=== PATIENT | male | born 1990 | race Caucasian/White ===

== ENCOUNTER → 2016-08-19 | Day surgery (SDC) | payer OTHER ==
[2016-08-13 09:23] VITALS: BMI 43.0
[~2016-08-19] VITALS: Ht 167.6 cm; Wt 121.8 kg
[~2016-08-19] MED LIST: LIDOCAINE HCL 2% 2 ML VIAL (20MG/ML) ONE; MIDAZOLAM HCL 1 MG/ML 2ML VIAL ONE; OMEP20CA9 PO; OXYC-57 PO; PROPOFOL IV EMULSION 10 MG/ML 20 ML VIAL IV ONE; SODIUM CHLORIDE 0.9% 500ML 500 ML IV ONE; WLLSR150 PO
[2016-08-19 08:38] VITALS: Ht 167.6 cm; Wt 121.8 kg
--- NOTE | 2016-08-19 10:28 | Endo History and Physical ---
History & Physical Date of Service: Aug 19, 2016. Chief Complaint: LQ PAIN, DIVERTICULITIS Referring Physician: DR. JJ JOE History of Present Illness LLQ pain treated as diverticulitis, follow up. Past Surgical History Hx Cardiac Surgery: No Hx Internal Defibrillator: No Hx Pacemaker: No Hx Abdominal Surgery: No Hx of Implantable Prosthesis: No Hx Post-Op Nausea and Vomiting: No Hx Cancer Surgery: No Hx Thoracic Surgery: No Hx Orthopedic: No Hx Urinary Tract Surgery: No Family History None Social History Smoking Status: Current Some Day Smoker Hx Substance Use: Yes (MARIJUANA OCCASSIONALLY) Hx Alcohol Use: Yes (OCCASSIONALLY) Allergies Coded Allergies: No Known Allergies (Verified , 08/19/16) Current Medications Reported Home Medications Medications Dose Route/Sig Max Daily Dose Days Date Category No Active Prescriptions or Reported Medications Rx Vital Signs Weight (Kilograms): 121.82 Height (Feet): 5 Height (Inches): 6 Date Time Temp Pulse Resp B/P Pulse Ox O2 Delivery O2 Flow Rate FiO2 08/19/16 08:52 37.2 85 20 136/74 94 Room Air Physical Exam General Appearance: WD/WN, no apparent distress, + obese Respiratory/Chest: Auscultation: breath sounds normal, no rales/crackles Cardiovascular: Heart Auscultation: RRR, no murmurs Abdomen: Bowel Sounds: normal Inspection & Palpation: no tenderness, guarding & rebound Assessment and Plan Colonoscopy today.
--- NOTE | 2016-08-19 11:00 | Discharge Instructions ---
Endoscopy Patient Instructions Date / Procedure(s) Performed Aug 19, 2016. Colonoscopy Allergy Information Coded Allergies: No Known Allergies (Verified , 08/19/16) Discharge Date / Findings Aug 19, 2016. Normal colonoscopy Medication Instructions Restart Stopped Medication(s): Restart all medications Provider Instructions Activity Restrictions - No exercising or heavy lifting for 24 hours. - Do not drink alcohol the day of the procedure. - Do not drive a car or operate machinery until the day after the procedure. - Do not make any important decisions or sign important papers in 24 hours after the procedure. Following Day: - Return to full activity which may include returning to work/school. Diet Start your diet with liquids and light foods (jello, soup, juice, toast). Then eat your usual diet if not nauseated. Treatment For Common After Affects For mild abdominal pain, bloating, or excessive gas: - Rest - Eat lightly - Lie on right side Follow-Up Information Follow-up with DR. JJ JOE as scheduled Anesthesia Information What You Should Know You have had a procedure that required some medicine to reduce anxiety and discomfort. This treatment is called moderate sedation. After receiving the treatment, you may be sleepy, but you will be able to breathe on your own. The effects of the treatment may last for several hours. Follow these instructions along with Activity/Diet recommendations noted above: * Do NOT do anything where dizziness or clumsiness would be dangerous. * Rest quietly at home today, then you can be up and about tomorrow. * Have a responsible person stay with you the rest of today. * You may have had an I.V. today. If so, you may take the dressing off later today. Recommendations Call your doctor if: * Trouble breathing * Continuous vomiting for more than 24 hours * Temperature above 101 degrees * Severe abdominal pain or bloating * Pain not relieved by pain medicine ordered * There is increased drainage or redness from any incision * A large amount of rectal bleeding greater than 2-3 tablespoons. (If you had a polyp/s removed or have hemorrhoids, a small amount of blood - from the rectum is to be expected.) * You have any unanswered questions or concerns. IN THE EVENT OF A SERIOUS EMERGENCY, GO TO THE NEAREST EMERGENCY ROOM Your discharge instructions were prepared by provider Darrion Ortez. Patient Instructions Signature Page Boby Xiong Patient (or Guardian) Signature/Date: I have read and understand the instructions given to me by my caregivers. Caregiver/RN/Doctor Signature/Date: The above-named patient and/or guardian has received patient instructions on this date. + Original Patient Signature Page (only) stays with chart. Please make copy for patient.
--- NOTE | 2016-08-19 11:03 | GI REPORT ---
Procedure Date: 08/19/2016 10:24 AM Procedure: Colonoscopy Indications: Suspected diverticulitis, Follow-up of diverticulitis Medicines: Monitored Anesthesia Care Complications: No immediate complications. Estimated blood loss: None. Estimated Blood Loss: Estimated blood loss: none. Procedure: Pre-Anesthesia Assessment: - Prior to the procedure, a History and Physical was performed, and patient medications, allergies and sensitivities were reviewed. The patient's tolerance of previous anesthesia was reviewed. - ASA Grade Assessment: III - A patient with severe systemic disease. After I obtained informed consent, the scope was passed under direct vision. Throughout the procedure, the patient's blood pressure, pulse, and oxygen saturations were monitored continuously. The scope was introduced through the anus and advanced to the terminal ileum, with identification of the appendiceal orifice and IC valve. The colonoscopy was performed with ease. The patient tolerated the procedure well. The quality of the bowel preparation was good. The bowel preparation used was split dose MIralax. Findings: The entire examined colon appeared normal. Impression: - The entire examined colon is normal to the terminal ileum with retroflexed views of the colon and terminal ileum. - No specimens collected. Recommendation: - Resume regular diet. - Discharge patient to home (with escort). Darrion Ortez M.D. Darrion Ortez MD 08/19/2016 11:03:08 AM This report has been signed electronically. Note Initiated On: 08/19/2016 10:24 AM I attest to the content of the Intraoperative Record and orders documented therein, exceptions below
[2016-08-19 11:36] VITALS: BP 143/76; PULSE 80; O2SAT 99
== END | disposition home or self-care (01) ==
LOC: C.GI 08:25
PROVIDERS: ATTEND Internal Medicine Gastroenterology
DX: R10.32 Left lower quadrant pain (principal); K57.32 Diverticulitis of large intestine without perforation or abscess without bleeding; Z87.891 Personal history of nicotine dependence

== ENCOUNTER 2016-10-15 06:03 | Emergency (ER) | payer OTHER ==
[~2016-10-15] VITALS: Ht 167.6 cm; Wt 122.0 kg
[2016-10-15 06:06] VITALS: TEMP 37; Ht 167.6 cm; Wt 122.0 kg
[2016-10-15 06:30] LABS: BASO % 0.3 %; BASO ABS # 0.02 K/uL (0-0.2); COMPLETE YES; EOS % 4.1 %; HEMATOCRIT 42.1 % (42-52); IG% 0.3 %; LYMPH % 26.6 %; MEAN CORPUSCULAR HEMOGLOBIN 29.8 pg (25-34); MEAN CORPUSCULAR HGB CONC 34.2 g/dl (32-36); MEAN PLATELET VOLUME 11.1 fL (7.4-10.4); MONO % 5.4 %; NEUT % 63.3 %; PLATELET COUNT 238 K/uL (130-400); RED BLOOD COUNT 4.84 M/uL (4.7-6.1)
[2016-10-15 06:38] LABS: ALT/SGPT 50 U/L (12-78); AST/SGOT 24 U/L (15-37); BLOOD UREA NITROGEN 22 mg/dl (7-18); CALCIUM 8.8 mg/dl (8.5-10.1); CARBON DIOXIDE 25 mmol/L (21-32); CHLORIDE 109 mmol/L (98-107); GLUCOSE 108 mg/dl (70-99); POTASSIUM 3.7 mmol/L (3.5-5.1); SODIUM 143 mmol/L (136-145)
[2016-10-15 06:43] LABS: ALKALINE PHOSPHATASE 86 U/L (45-117); CKMB/CK RATIO 0.5 (0-3.0)
[2016-10-15] MEDS ORDERED: OMEP20CA9 PO (06:44)
[2016-10-15] MEDS ORDERED: WLLSR150 PO (06:44)
[2016-10-15] MEDS ORDERED: KETOROLAC TROMETHAMINE 30 MG/ML VIAL IV STA (06:48)
--- NOTE | 2016-10-15 06:55 | DIAGNOSTIC IMAGING REPORT ---
CHEST ONE VIEW PORTABLE CLINICAL HISTORY: CP dyspnea COMPARISON STUDY: 06/22/2015 FINDINGS: Moderate stable cardiomegaly. Slight prominence pulmonary vasculature. No focal infiltrate. IMPRESSION: Cardiomegaly. Early congestive failure. Electronically signed by: Cristi Hernández M.D. 10/15/2016 6:53 AM Dictated Date/Time: 10/15/2016 6:53 AM
[2016-10-15] MEDS ORDERED: OPTIRAY 320 IV PRN (07:00)
--- NOTE | 2016-10-15 08:09 | DIAGNOSTIC IMAGING REPORT ---
CHEST CTA for AORTIC DISSECTION CT DOSE: 2378.02 mGy.cm HISTORY: Left-sided chest pain that radiates into the back. Short of breath. TECHNIQUE: Multiaxial CT images of the chest were performed both before and after the intravenous administration of contrast to evaluate the aorta. Maximal intensity projection images were also obtained. COMPARISON STUDY: Chest 10/05/2016. FINDINGS: Noncontrast imaging shows no evidence for an intramural hematoma within the thoracic aorta. Punctate stone within the right kidney. The heart is borderline enlarged. Normal caliber thoracic aorta with no evidence for dissection. The central pulmonary arteries are patent. No pleural or pericardial effusions. There are 2 small right upper tracheal diverticula. These are considered to be normal variants. No mediastinal or hilar lymphadenopathy. Normal esophagus. No hepatic or splenic masses. The adrenal glands are normal. No fractures within the visualized osseous structures. No pneumothorax. The central airways are patent. The lungs are clear. IMPRESSION: 1. No evidence for an aortic dissection. 2. Right-sided nephrolithiasis. No hydronephrosis. 3. The heart is borderline enlarged. Follow-up echocardiogram should be considered for further evaluation. Electronically signed by: Arslan Desouza M.D. 10/15/2016 8:07 AM Dictated Date/Time: 10/15/2016 7:58 AM
[2016-10-15 10:20] VITALS: BP 131/99; PULSE 76; O2SAT 98
--- NOTE | 2016-10-15 15:32 | EMERGENCY ROOM VISIT NOTE ---
History Report prepared by Amadeo: Jay Murray Under the Supervision of: Dr. Rodriguez Carroll M.D. First contact with patient: 06:37 Chief Complaint: CHEST PAIN Stated Complaint: CHEST PAIN Nursing Triage Summary: Patient arrived to ED via ALS. Patient awoke with a sudden onset of left sided CP that radiates into the back. Pain is described as sharp, constant, worse with palpation and movement. Patient also reports assoicated SOB. Patient denies any cardiac hx. Patient was given ASA and nitro pre-hospital. History of Present Illness The patient is a 26 year old male who presents to the Emergency Room via ambulance with complaints of constant sudden onset left sided chest pain occurring around 0445 this morning. The patient states that the pain radiates into his back as well, and he is having some shortness of breath. He currently rates his discomfort as a 10/10 in severity. The patient states that he was walking home from his friend's house this morning, and he stated that he got this chest pain. The patient states that he has never had pain like this before , and he states that it is worsened with movement. He additionally states that he has had some back pain for a while, though he has not had recent chest pain. The patient denies any recent heavy lifting other than some pans at his job. The patient additionally states that he has had recent issues with his gall bladder, and he is going to have it removed soon. He denies knowing any family history due to being adopted. He additionally states that he got his flu shot this year, and he denies any recent long travels. Pt denies LOC, headache, fevers, chills, diaphoresis, visual changes, neck pain, nausea, vomiting, abdominal pain, melena, hematochezia, urinary symptoms, numbness, weakness, lymphadenopathy, rash, or other complaints. Source of History: patient Onset: 0445 Position: chest (left) Symptom Intensity: 10/10 Timing: constant, other (sudden) Modifying Factors (Worsening): movement Associated Symptoms: + SOB, + back pain, + chest pain Review of Systems See HPI for pertinent positives and negatives. A total of ten systems were reviewed and were otherwise negative. Past Medical & Surgical Medical Problems: (1) Bronchitis (2) No pertinent past medical history Family History Heart disease Social History Smoking Status: Light Tobacco Smoker Alcohol Use: none Drug Use: none Marital Status: single Housing Status: lives with family Occupation Status: employed Current/Historical Medications Scheduled Bupropion HCl (Bupropion HCl Sr), 150 MG PO QAM Omeprazole (Prilosec), 20 MG PO QAM Allergies Coded Allergies: No Known Allergies (Verified , 10/15/16) Physical Exam Vital Signs Date Time Temp Pulse Resp B/P Pulse Ox O2 Delivery O2 Flow Rate FiO2 10/15/16 10:20 76 20 131/99 98 10/15/16 08:45 80 18 150/93 97 Room Air 10/15/16 06:13 74 10/15/16 06:12 74 10/15/16 06:10 97 Room Air 10/15/16 06:06 37.0 81 20 156/93 97 Room Air Physical Exam GENERAL: Awake, alert, well-appearing, in no distress HENT: Normocephalic, atraumatic. Oropharynx unremarkable. EYES: Normal conjunctiva. Sclera non-icteric. NECK: Supple. No nuchal rigidity. FROM. No JVD. RESPIRATORY: Clear to auscultation. CARDIAC: Regular rate, normal rhythm. Extremities warm and well perfused. Pulses equal. ABDOMEN: Soft, non-distended. No tenderness to palpation. No rebound or guarding. No masses. RECTAL: Deferred. MUSCULOSKELETAL: Chest examination reveals anterior chest wall tenderness. There is mild tenderness in the left mid thoracic paraspinal muscles. The back is symmetrical on inspection without obvious abnormality. There is no CVA tenderness to palpation. No joint edema. LOWER EXTREMITIES: Calves are equal size bilaterally and non-tender. No edema. No discoloration. NEURO: Normal sensorium. No sensory or motor deficits noted. SKIN: No rash or jaundice noted. Medical Decision & Procedures ER Provider Diagnostic Interpretation: X ray results as stated below per my interpretation and radiologist interpretation. Other radiology results as stated below per my review and radiologist interpretation CHEST ONE VIEW PORTABLE CLINICAL HISTORY: CP dyspnea COMPARISON STUDY: 06/22/2015 FINDINGS: Moderate stable cardiomegaly. Slight prominence pulmonary vasculature. No focal infiltrate. IMPRESSION: Cardiomegaly. Early congestive failure. Electronically signed by: Cristi Hernández M.D. 10/15/2016 6:53 AM Dictated Date/Time: 10/15/2016 6:53 AM CHEST CTA for AORTIC DISSECTION CT DOSE: 2378.02 mGy.cm HISTORY: Left-sided chest pain that radiates into the back. Short of breath. TECHNIQUE: Multiaxial CT images of the chest were performed both before and after the intravenous administration of contrast to evaluate the aorta. Maximal intensity projection images were also obtained. COMPARISON STUDY: Chest 10/05/2016. FINDINGS: Noncontrast imaging shows no evidence for an intramural hematoma within the thoracic aorta. Punctate stone within the right kidney. The heart is borderline enlarged. Normal caliber thoracic aorta with no evidence for dissection. The central pulmonary arteries are patent. No pleural or pericardial effusions. There are 2 small right upper tracheal diverticula. These are considered to be normal variants. No mediastinal or hilar lymphadenopathy. Normal esophagus. No hepatic or splenic masses. The adrenal glands are normal. No fractures within the visualized osseous structures. No pneumothorax. The central airways are patent. The lungs are clear. IMPRESSION: 1. No evidence for an aortic dissection. 2. Right-sided nephrolithiasis. No hydronephrosis. 3. The heart is borderline enlarged. Follow-up echocardiogram should be considered for further evaluation. Electronically signed by: Arslan Desouza M.D. 10/15/2016 8:07 AM Dictated Date/Time: 10/15/2016 7:58 AM Laboratory Results 10/15/16 06:10 Red Blood Count 4.84, Mean Corpuscular Volume 87.0, Mean Corpuscular Hemoglobin 29.8, Mean Corpuscular Hemoglobin Concent 34.2, Mean Platelet Volume 11.1, Neutrophils (%) (Auto) 63.3, Lymphocytes (%) (Auto) 26.6, Monocytes (%) (Auto) 5.4, Eosinophils (%) (Auto) 4.1, Basophils (%) (Auto) 0.3, Neutrophils # (Auto) 5.01, Lymphocytes # (Auto) 2.10, Monocytes # (Auto) 0.43, Eosinophils # (Auto) 0.32, Basophils # (Auto) 0.02 10/15/16 06:10 Test 10/15/16 06:10 10/15/16 09:03 White Blood Count 7.90 K/uL (4.8-10.8) Red Blood Count 4.84 M/uL (4.7-6.1) Hemoglobin 14.4 g/dL (14.0-18.0) Hematocrit 42.1 % (42-52) Mean Corpuscular Volume 87.0 fL (80-100) Mean Corpuscular Hemoglobin 29.8 pg (25-34) Mean Corpuscular Hemoglobin Concent 34.2 g/dl (32-36) Platelet Count 238 K/uL (130-400) Mean Platelet Volume 11.1 fL (7.4-10.4) Neutrophils (%) (Auto) 63.3 % Lymphocytes (%) (Auto) 26.6 % Monocytes (%) (Auto) 5.4 % Eosinophils (%) (Auto) 4.1 % Basophils (%) (Auto) 0.3 % Neutrophils # (Auto) 5.01 K/uL (1.4-6.5) Lymphocytes # (Auto) 2.10 K/uL (1.2-3.4) Monocytes # (Auto) 0.43 K/uL (0.11-0.59) Eosinophils # (Auto) 0.32 K/uL (0-0.5) Basophils # (Auto) 0.02 K/uL (0-0.2) RDW Standard Deviation 44.4 fL (36.4-46.3) RDW Coefficient of Variation 13.9 % (11.5-14.5) Immature Granulocyte % (Auto) 0.3 % Immature Granulocyte # (Auto) 0.02 K/uL (0.00-0.02) D-Dimer < 190 ug/L FEU (0-500) Anion Gap 9.0 mmol/L (3-11) Est Creatinine Clear Calc Drug Dose 137.8 ml/min Estimated GFR () 119.9 Estimated GFR (Non- 103.4 BUN/Creatinine Ratio 22.0 (10-20) Calcium Level 8.8 mg/dl (8.5-10.1) Total Bilirubin 0.4 mg/dl (0.2-1) Direct Bilirubin < 0.1 mg/dl (0-0.2) Aspartate Amino Transf (AST/SGOT) 24 U/L (15-37) Alanine Aminotransferase (ALT/SGPT) 50 U/L (12-78) Alkaline Phosphatase 86 U/L (45-117) Total Creatine Kinase 465 U/L (39-308) Creatine Kinase MB 2.2 ng/ml (0.5-3.6) Creatine Kinase MB Ratio 0.5 (0-3.0) Pro-B-Type Natriuretic Peptide < 5 pg/ml (0-450) Total Protein 7.7 gm/dl (6.4-8.2) Albumin 3.8 gm/dl (3.4-5.0) Bedside Troponin I 0.000 ng/ml (0-0.045) Laboratory results reviewed by me Medications Administered Medications (Trade) Dose Ordered Sig/Marlene Route Start Time Stop Time Status Last Admin Dose Admin Ketorolac Tromethamine (Toradol Inj) 30 mg NOW STAT IV 10/15/16 06:48 10/15/16 06:50 DC 10/15/16 06:59 30 MG ECG Indication: chest pain Rate (beats per minute): 86 Rhythm: sinus rhythm (with sinus arrhythmia) Findings: no acute ischemic change, no ectopy Change: Repeat EKG showed: Normal Sinus Rhythm at 69 bpm. No ischemia, no ectopy, no pericarditis. ED Course 0638: The patient was evaluated in room B7. A complete history and physical exam was performed. 0648: Toradol Inj 30mg IV 0847: I reevaluated the patient, and he was feeling better. 0957: I reevaluated the patient, and he was feeling well. Discussed results and discharge instructions: He verbalized understanding and agreement. The patient is ready for discharge. Medical Decision Triage Nursing notes reviewed. The patient's presentation and history were concerning for chest pain. Etiologies such as cardiac ischemia, aortic dissection, pulmonary embolism, pneumonia, pneumothorax, musculoskeletal, infections, gastrointestinal, as well as others were entertained. The patient was evaluated. He was tender in the left side. Record review indicates that he has had a few similar issues back in 2014. The patient was given Toradol. ECG was nonischemic 2. No pericarditis. The patient had a chest x-ray which shows mild cardiomegaly. He had unremarkable troponin 2. The patient had a negative CBC, chemistry panel, CK-MB, BNP, and d-dimer. No evidence of dissection on CT imaging. The patient has mild cardiomegaly but no evidence of failure. He has no respiratory issues. He has no lower extremity edema. The patient was feeling better on reassessment after the Toradol. He likely has chest wall pain. The patient will follow-up with his primary physician. If he worsens in any way he will come back. I gave my usual and customary discussion regarding this issue. By the evaluation outlined above other emergent etiologies such as those listed in the differential, as well as others, were deemed relatively unlikely. The patient was informed about the findings as listed above. All questions were answered and he was pleased with the treatment. Return instructions were outlined and the patient was discharged in stable condition. The patient was referred to his PCP for follow-up next week for a recheck of the current condition. The chart was completed utilizing [employer] Speech voice recognition software. Grammatical errors, random word insertions, pronoun errors, and incomplete sentences are an occasional consequence of this system due to software limitations, ambient noise, and hardware issues. Any formal questions or concerns about the content, text, or information contained within the body of this dictation should be directly addressed to the physician for clarification. [place] Drug Monitoring Program Search Results: patient reviewed within database, no issues identified Impression Primary Impression: Left sided chest pain Additional Impression: Left-sided back pain Scribe Attestation The scribe's documentation has been prepared under my direction and personally reviewed by me in its entirety. I confirm that the note above accurately reflects all work, treatment, procedures, and medical decision making performed by me. Departure Information Dispostion Home / Self-Care Referrals Rona Powell D.O. (PCP) Forms HOME CARE DOCUMENTATION FORM, IMPORTANT VISIT INFORMATION Patient Instructions [facility] Additional Instructions CHEST PAIN INSTRUCTIONS: Ibuprofen(Motrin, Advil) may be used for fever or pain. Use 600mg every six hours as needed. Take with food. Avoid using more than 2400mg in a 24 hour period. Do not use 2400mg per day for more than three consecutive days without physician direction. Prolonged inappropriate use can lead to stomach upset or ulcers. (AND/OR) Acetaminophen(Tylenol) may be used for fever or pain. Use 1000mg every six hours as needed. Avoid using more than 4000mg in a 24 hour period. Rest and drink plenty of fluids as tolerated. Continue current medications. Avoid strenuous activities and anything that worsens your pain. Resume normal activities once your symptoms resolve. Return to the ER immediately for worsening or persistent chest pain, abdominal pain, vomiting, fevers, chest pains, difficulty breathing, worsening of your condition, or as needed. Follow up with your primary physician on Tuesday for a recheck of your current condition. Problem Qualifiers
[2017-02-22] MEDS ORDERED: OXYC-57 PO (11:16)
== END 2016-10-15 10:21 | disposition home or self-care (01) ==
LOC: EDBD 06:03 → C.EDB 06:04
DX: R07.9 Chest pain, unspecified (principal); M54.9 Dorsalgia, unspecified; F17.200 Nicotine dependence, unspecified, uncomplicated; Z79.899 Other long term (current) drug therapy; Z82.49 Family history of ischemic heart disease and other diseases of the circulatory system

== ENCOUNTER → 2017-02-22 | Day surgery (SDC) | payer OTHER ==
[2017-02-21 15:54] VITALS: BMI 44.0
[~2017-02-22] VITALS: Ht 165.1 cm; Wt 122.3 kg
[~2017-02-22] MED LIST changes: +ATROPINE SULFATE 0.1 MG/ML 5ML SYR IV PRN; +BACITRACIN OINT 15 GM TUBE ONE; +BUPIVACAINE 0.5 % 5 MG/1 ML MPF 30ML VIAL ONE; +CEFAZOLIN 2000 MG/60 ML D5W IV SCH; +CEFAZOLIN 3000 MG/65 ML D5W IV SCH; +CEFAZOLIN IV 2,000 MG/60 ML D5W IV ONE; +DEXAMETHASONE SOD INJ 4 MG/ML VIAL ONE; +ESMOLOL HCL 10 MG/ML 10 ML VIAL ONE; +EpHEDrine SULFATE INJ 50 MG/ML AMP IV PRN; +FENTANYL CITRATE INJ 50 MCG/1 ML 2 ML VIAL IV PRN; +FENTANYL CITRATE INJ 50 MCG/1 ML 2 ML VIAL ONE; +FLUMAZENIL 0.1 MG/1 ML 10 ML VIAL IV PRN; +GLYCOPYRROLATE INJ 0.2 MG/ML VIAL ONE; +KETOROLAC TROMETHAMINE 30 MG/ML VIAL ONE; +LABETALOL HCL IV 5 MG/ML 20ML IV PRN; +LACTATED RINGER'S 1000ML 1,000 ML IV SCH; +LIDOCAINE HCL 1% 20 ML VIAL ONE; +MoRPHine SULFATE 2 MG/ML CARP IV PRN; +MoRPHine SULFATE 4 MG/ML 1 ML CARP\\VIAL IV PRN; +NALOXONE HCL 0.4 MG/1 ML VIAL/CARP IV PRN; +NEOSTIGMINE METHYLSULFATE 5 MG/5 ML SYR ONE; +ONDANSETRON INJ 2 MG/ML 2 ML VIAL IV PRN; +ONDANSETRON INJ 2 MG/ML 2 ML VIAL ONE; +OXYCODONE/ACETAMINOPHEN 5-325 TAB PO PRN; +PROMETHAZINE HCL INJ 12.5 MG in SODIUM CHLORIDE 0.9% 50ML 50 ML IV PRN; +ROCURONIUM BROMIDE 10 MG/ML 5 ML VIAL IV ONE; -SODIUM CHLORIDE 0.9% 500ML 500 ML IV ONE
[2017-02-22 08:34] VITALS: BP 139/78; PULSE 64; TEMP 36.8; O2SAT 94; Ht 165.1 cm; Wt 122.3 kg
--- NOTE | 2017-02-22 09:14 | History & Physical Bridge Note ---
H&P Re-Evaluation Bridge Note: I have examined the patient, reviewed the History & Physical and in the interval since the performance of the History & Physical I have noted the following changes of clinical significance: No changes noted
--- NOTE | 2017-02-22 10:59 | [facility] Post Operative Brief Note ---
Immediate Operative Summary Operative Date Feb 22, 2017. Pre-Operative Diagnosis chronic Cholecystitis Post-Operative Diagnosis same Procedure(s) Performed Laparoscopic Cholecystectomy Surgeon Dr. Major Staff Development Manager Surgeon(s) Pebbles Marin PA-C Estimated Blood Loss 10 ML Findings chronic cholecystitis Fluids (cc crystalloids) 1200ml Specimens A. gallbladder Drains none Anesthesia general Complication(s) None Disposition Recovery Room / PACU
--- NOTE | 2017-02-22 11:20 | Discharge Instructions ---
Discharge Instructions Date of Service Feb 22, 2017. Admission Reason for Admission: Chronic Cholecystitis, Cholelithiasis Discharge Discharge Diagnosis / Problem: same Discharge Goals Goal(s): Decrease discomfort, Improve function Activity Recommendations Activity Limitations: as noted below No heavy lifting over 20 pounds for 2 weeks No strenuous activity until cleared by surgeon Walking and light activity is encouraged No submerging incisions underwater for 2 weeks (no bathing, swimming, or hot tubs) No driving while you are taking narcotic pain medication or until you are pain free . Instructions / Follow-Up Instructions / Follow-Up You may shower in 3 days and then remove dressings, may wash hair and sponge bath in the meantime Take dressings off in 3 days Keep steri strips on incision for 7 days, they may fall off on their own that is okay Follow-up with Dr. Major in 2 weeks, call office at [phone] to make an appointment if you do not already have one Current Hospital Diet Patient's current hospital diet: Discharge Diet Recommended Diet: Regular Diet Procedures Procedures Performed: Laparoscopic Cholecystectomy Pending Studies Studies pending at discharge: yes List of pending studies: gallbladder pathology-will be reviewed at follow-up visit Medical Emergencies . Who to Call and When: Medical Emergencies: If at any time you feel your situation is an emergency, please call 911 immediately. . Non-Emergent Contact Non-Emergency issues call your: Primary Care Provider, Surgeon Call Non-Emergent contact if: you have a fever, temperature is above 101.5, your pain is not controlled, your pain is worsening, wound has increased drainage, wound has increased redness, wound has increased pain . "Provider Documentation" section prepared by Pebbles Marin. . VTE Core Measure Inpt VTE Proph given/why not?: SCD's [place] Drug Monitoring Program Search Results: patient reviewed within database, no issues identified
--- NOTE | 2017-02-22 11:52 | OPERATIVE REPORT ---
DATE OF OPERATION: 02/22/2017 PREOPERATIVE DIAGNOSIS: Chronic cholecystitis, cholelithiasis. POSTOPERATIVE DIAGNOSIS: Same. OPERATION: Laparoscopic cholecystectomy. SURGEON: Dr. Ivette Major. ANESTHESIA: General. CHIEF I DISPATCHER: Pebbles Marin PA-C. FINDINGS: Chronic cholecystitis. COMPLICATIONS: None. BLOOD LOSS: About 10 mL. IV FLUIDS: 1200 mL. INDICATIONS FOR THE PROCEDURE: This is a 26-year-old gentleman who presented with right upper quadrant pain. The patient was diagnosed with chronic cholecystitis with gallstones. The patient will be required to do laparoscopic cholecystectomy, possible open, possible cholangiogram. I did talk to the patient about the benefit and risk, alternate procedure. I indicated the risks may include but not limited such as bleeding, infection, injury to common bile duct, injury to bowel, incisional hernia, risk of anesthesiology, even . The patient understands. He signed informed consent and I answered all questions. DETAILS OF PROCEDURE: We brought the patient to the procedure, put the patient in the supine position. The patient received SCD on bilateral legs to prevent DVT. Also, patient received 2 grams Ancef IV for prophylactic antibiotic. The patient received general anesthesia without difficulty. The abdomen was prepped and draped in routine sterile fashion. After a timeout, I injected local anesthesia by using 1% lidocaine mixed with 0.5% Marcaine just above the umbilical. Then I made about a 1.5 cm incision just above umbilical, opened fascia and opened peritoneum under direct vision. I put a María trocar in, connected to CO2 to create pneumoperitoneum. Flow rate is 6 liter per minute. Pressure not more than 14 mmHg. Once we get a nice pneumoperitoneum, we put a 10 mm camera in, looked around the abdomen shows no more findings on the stomach, small bowel, large bowel and the liver; however, there was some omentum covering the gallbladder showing chronic cholecystitis. Then, we put another 3.5 mm trocar on the right upper quadrant. Once all trocars in I put grasper in to hold the base of the gallbladder, put direction to the diaphragm and put another grasper in to hold the pouch over the gallbladder, put latter to expose the triangle of Calot. The cystic duct was identified and mobilized. Then I put two 5 mm metal clips on the proximal cystic duct, 1 on the distal cystic duct, then I used scissor transection the cystic duct. The cystic artery was identified and mobilized. Then I put two 5 mm metal clips on the cystic artery, 1 on the distal cystic artery. Then, I used scissor transection the cystic artery. Then I used Bovie to take down gallbladder without difficulty, rechecked no active bleeding, no bile leak and then we removed the gallbladder through the catch bag, then we reinserted María trocar in, connected to CO2 to create pneumoperitoneum. Again looked around the abdomen, no bile leak and no active bleeding from the liver bed. Then we removed all trocars under direct vision. No active bleeding from trocar sites. Then, the pneumoperitoneum was released. Then I closed the umbilical incision, fascial layer by using #1 Vicryl [id number] x2, closed the subcutaneous layer by using 2-0 Vicryl, closed skin by using 4-0 Vicryl continuous running. Then we closed another 3.5 mm trocar site skin only by using 4-0 Vicryl. Then we put the dressing on. All the instrument, needle and sponge count correct x2 at the end of the case. The patient tolerated the procedure well. After the procedure, I did talk to the patient and patient's family member about the OR finding and procedure we did, they understand. The specimen was sent to pathology. I attest to the content of the Intraoperative Record and any orders documented therein. Any exceptions are noted below. ROGE
[2017-02-22 12:00] VITALS: BP 121/72; PULSE 65; TEMP 36.7; O2SAT 93
--- NOTE | 2017-02-22 12:02 | Anesthesiology Progress Note ---
Anesthesia Post Op Note Date & Time Feb 22, 2017 at 12:02 Vital Signs Pain Intensity: 3 Vital Signs Past 12 Hours Date Time Temp Pulse Resp B/P (MAP) Pulse Ox O2 Delivery O2 Flow Rate FiO2 02/22/17 11:51 36.5 02/22/17 11:47 70 17 94 02/22/17 11:47 69 17 02/22/17 11:45 134/82 02/22/17 11:42 75 19 02/22/17 11:42 75 19 95 02/22/17 11:41 142/83 02/22/17 11:37 76 18 93 02/22/17 11:37 78 18 02/22/17 11:36 122/73 02/22/17 11:34 Room Air 02/22/17 11:32 58 16 96 02/22/17 11:32 59 16 02/22/17 11:30 154/84 02/22/17 11:27 65 19 100 02/22/17 11:27 66 19 02/22/17 11:26 151/85 02/22/17 11:22 67 17 02/22/17 11:22 66 17 100 02/22/17 11:20 147/86 02/22/17 11:19 132/84 02/22/17 11:12 36.3 67 16 123/84 100 Mask 10 02/22/17 08:34 36.8 64 18 139/78 (98) 94 Room Air Notes Mental Status: alert / awake / arousable, participated in evaluation Pt Amnestic to Procedure: Yes Nausea / Vomiting: adequately controlled Pain: adequately controlled Airway Patency, RR, SpO2: stable & adequate BP & HR: stable & adequate Hydration State: stable & adequate Anesthetic Complications: no major complications apparent
[2017-02-22 12:29] VITALS: BP 141/78; PULSE 80; O2SAT 94
[2017-02-22 13:00] VITALS: BP 136/78; PULSE 85; TEMP 37; O2SAT 95
[2017-02-22 14:00] VITALS: BP 153/83; PULSE 92; TEMP 37; O2SAT 100
== END | disposition home or self-care (01) ==
LOC: C.ACU 08:13
PROVIDERS: ATTEND Surgery
DX: K80.10 Calculus of gallbladder with chronic cholecystitis without obstruction (principal); F31.30 Bipolar disorder, current episode depressed, mild or moderate severity, unspecified; Z87.891 Personal history of nicotine dependence

== ENCOUNTER 2023-08-02 05:48 | Inpatient (IN) ==
[2023-08-02 06:32] LABS: Basophils # (auto) 0.05 K/uL (0.00-0.20); Basophils % (auto) 0.5 %; Eosinophils # (auto) 0.26 K/uL (0.00-0.50); Eosinophils % (auto) 2.4 %; Hematocrit (blood only) 40.3 % (42.0-52.0); Hemoglobin 13.3 g/dl (14.0-18.0); Immature Granulocytes # (auto) 0.06 K/uL (0.01-0.20); Immature Granulocytes % (auto) 0.6 %; Lymphocytes # (auto) 1.52 K/uL (1.20-3.40); Mean Corpuscular Volume 87.8 fL (80.0-100.0); Monocytes # (auto) 0.56 K/uL (0.11-0.59); Monocytes % (auto) 5.1 %; Neutrophils # (auto) 8.44 K/uL (1.40-6.50); Neutrophils % (auto) 77.4 %; Platelet Count 226 K/uL (130-400); RDW Coefficient of Variation 13.7 % (11.5-14.5); RDW Standard Deviation 43.8 fL (36.4-46.3); Red Blood Count 4.59 M/uL (4.70-6.10); White Blood Count 10.89 K/ul (4.8-10.8)
[2023-08-02 06:35] LABS: Albumin Globulin Ratio 1.5 (0.9-2); Albumin Level 4.3 gm/dl (3.4-5.0); BUN Creatinine Ratio 22.6 (10-20); Bilirubin,Total 0.5 mg/dl (0.2-1.0); Calcium 9.8 mg/dl (8.6-10.3); Creatinine Clr Calc Pharmacy 138.3 ml/min; Est GFR (African American) 106.4 ml/min; Est GFR (Non-African American) 91.8 ml/min; Globulin 2.9 gm/dl (2.5-4.0); Potassium 3.9 mmol/L (3.5-5.1); Total Protein 7.2 gm/dl (6.0-8.3)
[2023-08-02] MEDS ORDERED: KETOROLAC TROMETHAMINE 15 MG/ML VIAL IV ONE (06:35)
--- NOTE | 2023-08-02 06:35 | Emergency Department Note ---
Impression & Plan Renal colic, UTI (urinary tract infection), Vomiting ED Provider Note NAME: JULIO C SHARP AGE: 33 SEX: M : 1990 ARRIVES VIA: Ambulance INFORMANT: Patient ED PROVIDER(S): Mik Vazquez DO CHIEF COMPLAINT: Right flank pain HPI: Patient is a 33-year-old male with a past medical history of asthma and kidney stones and presents the ER for right lower quadrant abdominal pain associated with nausea and vomiting which started around 3 AM this morning. He has a history of kidney stones and notes that this feels different. Pain does slightly radiate to the back. Denies any headache or change in vision. No chest pain or shortness of breath. He denies any dysuria, urgency or frequency. No other exacerbating or remitting factors. He denies any previous abdominal surgeries but upon review of his chart he does have a history of cholecystectomy. ADDITIONAL HISTORY OBTAINED: Per HPI Chronic Medical/Social Conditions Affecting Care: Per HPI PAST MEDICAL HISTORY:See Below PAST SURGICAL HISTORY:See Below FAMILY HISTORY:See Below SOCIAL HISTORY:See Below HOME MEDICATIONS:See Below ALLERGIES:See Below VITALS:See Below PHYSICAL EXAMINATION: GENERAL: Sitting up in bed, alert, well appearing, obese, no acute distress, sleeping EYE EXAM: normal conjunctiva. PERRL and EOM's grossly intact. OROPHARYNX: mucous membranes are moist NECK: supple, no nuchal rigidity, no adenopathy, non-tender LUNGS: Clear to auscultation. Normal chest wall mechanics HEART: no murmurs, S1 normal and S2 normal ABDOMEN: abdomen soft, minimal tenderness in the right mid abdomen, normo-active bowel sounds, no masses, no rebound or guarding. BACK: Back is symmetrical on inspection and there is no deformity, no midline tenderness, no CVA tenderness. UPPER EXTREMITIES: upper extremities are grossly normal. LOWER EXTREMITIES: No pitting edema. NEURO EXAM: Normal sensorium, cranial nerves II-XII grossly intact, normal speech, no gross weakness of arms, no gross weakness of legs. MEDICAL DECISION MAKING: Patient is a 33-year-old male with a past medical history of kidney stones, bronchitis, asthma and a previous history of cholecystectomy who presents ER for right mid abdominal pain rating to the back associated with nausea vomiting. IV was established blood work was obtained. Labs show faint leukocytosis of 10.9. No significant anemia. BMP with slightly elevated glucose at 173. LFTs bilirubin was unremarkable. Lipase was normal. Patient had right mid abdominal pain radiating to the back. Does appear to be consistent with his previous stones but slightly different and consequently CT stone study was ordered. He was given IV fluids and Toradol as well as Zofran. Of note EKG was done prior to my evaluation by nursing staff and consequently I did order it but he had no chest pain or shortness of breath. Nothing to be consistent with ACS. UA was consistent with UTI as it had +4 bacteria whites and leukocytes. Patient was given IV Rocephin. CT abdomen pelvis confirms renal colic with hydronephrosis. In the setting of a stone in the ureter with UTI did discuss case with the hospitalist for further evaluation management treatment. Patient was given again IV fluids, IV narcotics and IV antibiotics. Updated urology as well. Consults/Care Managements Discussions: Per [facility] Triage Nursing notes reviewed. Limited review of prior medical records performed Vital Signs: reviewed and remarkable for HTN Differential diagnosis: Differential diagnoses includes but is not limited to gastritis, peptic ulcer disease, GERD, gallbladder disease, pancreatitis, small bowel obstruction, appendicitis, diverticulitis, hernia, urinary tract infection, torsion, perforation, trauma, infectious. ER treatment provided: See below Diagnostics interpreted by me include EKG and cardiac monitoring as listed below: -Cardiac Monitoring: An order was placed for continuous cardiac monitoring. The monitor shows a rate of 80 with sinus rhythm. -ECG: Sinus rhythm rate 73 Normal axis No PVCs QTc 434 -Laboratory studies:Interpreted by me as stated above in MDM and shown below. Imaging studies: Xrays: As interpreted by me:none CTs show: CT abdomen pelvis per my preliminary interpretation showed no obvious bowel obstruction CT of the pelvis per radiology showed renal colic with hydronephrosis Procedures:none Critical Care: None Past Med/Surg History Medical History History of kidney stones Abdominal pain REASON FOR EGD Bipolar disorder Attention deficit disorder (ADD) Anxiety and depression Hyperlipidemia no medications Sleep apnea CPAP DEVICE Surgical History History of colonoscopy Neligh teeth removed History of cholecystectomy Family History Other No significant family history Social History Smoking Status: Current every day smoker Cigarettes Per Day: LAST SMOKED CIGAR 3 MONTHS AGO; Second Hand Exposure: No; Do You Dip or Chew Tobacco: No; Hx Alcohol Use: No Hx Substance Use: No (ONLY USES MEDICAL MARIJUANA) Preferred Language: Citizen Of [place] Communication Ability: Effective Dial Painter Required: No Beliefs That Will Affect Care: None Current Living Situation: Alone Feels Safe at Home: Yes Assistive Devices: CPAP and Glasses Allergies Allergies Allergy/AdvReac Type Severity Reaction Status Date / Time No Known Drug Allergies Allergy Unknown Verified 10/16/20 13:12 POLLEN Allergy SNEEZE, Uncoded 10/16/20 13:12 WATERY EYES Home Meds Home Medications Medication Instructions Recorded Confirmed Medical Marijauna 1 dose inhalation UD PRN Anxiety 09/12/19 08/02/23 albuterol sulfate 90 mcg/actuation 2 puff inhalation Q4 PRN Cough 10/08/20 08/02/23 aerosol inhaler lamotrigine 25 mg tablet (Lamictal) 50 mg PO QAM 08/02/23 08/02/23 sertraline 50 mg tablet (Zoloft) 50 mg PO QAM 08/02/23 08/02/23 ziprasidone HCl 40 mg capsule 40 mg PO HS 08/02/23 08/02/23 (Geodon) Results & Data (ED) Vital Signs Vital Signs - 24 hr 08/02/23 05:54 08/02/23 06:00 08/02/23 06:03 Temperature 36.7 C Temperature Source Oral Pulse Rate 82 88 75 Pulse Rate from SpO2 Sensor Pulse Rhythm Regular Pulse Strength Normal Respiratory Rate 18 13 Respiratory Effort / Characteristics Non-Labored Spontaneous Respiratory Depth Normal Respiratory Pattern Regular Blood Pressure 156/86 H 156/86 H Blood Pressure Mean 109 109 Blood Pressure Position Sitting Pulse Oximetry 97 Oxygen Delivery Method Room Air Sepsis Recent Fever Within 48 Hours No Sepsis New/Unexplained Change in Mental Status N/A Sepsis Action Taken by Nursing No Action Required 08/02/23 06:08 08/02/23 06:34 08/02/23 06:44 Temperature Temperature Source Pulse Rate 78 84 75 Pulse Rate from SpO2 Sensor 83 73 Pulse Rhythm Regular Pulse Strength Respiratory Rate 20 20 20 Respiratory Effort / Characteristics Respiratory Depth Respiratory Pattern Blood Pressure Blood Pressure Mean Blood Pressure Position Pulse Oximetry 97 93 99 Oxygen Delivery Method Room Air Sepsis Recent Fever Within 48 Hours Sepsis New/Unexplained Change in Mental Status Sepsis Action Taken by Nursing 08/02/23 06:44 08/02/23 07:00 08/02/23 07:00 Temperature Temperature Source Pulse Rate 72 Pulse Rate from SpO2 Sensor 77 Pulse Rhythm Pulse Strength Respiratory Rate 21 Respiratory Effort / Characteristics Respiratory Depth Respiratory Pattern Blood Pressure 164/122 H 179/100 H Blood Pressure Mean 133 116 Blood Pressure Position Pulse Oximetry 92 Oxygen Delivery Method Sepsis Recent Fever Within 48 Hours Sepsis New/Unexplained Change in Mental Status Sepsis Action Taken by Nursing 08/02/23 07:13 08/02/23 07:30 08/02/23 07:30 Temperature Temperature Source Pulse Rate 96 H 79 Pulse Rate from SpO2 Sensor 80 Pulse Rhythm Pulse Strength Respiratory Rate 20 20 Respiratory Effort / Characteristics Respiratory Depth Respiratory Pattern Blood Pressure 179/100 H 140/82 Blood Pressure Mean 126 103 Blood Pressure Position Pulse Oximetry 92 94 Oxygen Delivery Method Room Air Sepsis Recent Fever Within 48 Hours Sepsis New/Unexplained Change in Mental Status Sepsis Action Taken by Nursing 08/02/23 08:00 08/02/23 08:00 08/02/23 08:07 Temperature Temperature Source Pulse Rate 75 79 Pulse Rate from SpO2 Sensor 75 Pulse Rhythm Pulse Strength Respiratory Rate 22 20 Respiratory Effort / Characteristics Respiratory Depth Respiratory Pattern Blood Pressure 156/84 H 156/84 H Blood Pressure Mean 100 108 Blood Pressure Position Pulse Oximetry 96 95 Oxygen Delivery Method Room Air Sepsis Recent Fever Within 48 Hours Sepsis New/Unexplained Change in Mental Status Sepsis Action Taken by Nursing 08/02/23 08:30 08/02/23 08:30 08/02/23 09:00 Temperature Temperature Source Pulse Rate 91 H 80 Pulse Rate from SpO2 Sensor Pulse Rhythm Pulse Strength Respiratory Rate 21 24 12 Respiratory Effort / Characteristics Respiratory Depth Respiratory Pattern Blood Pressure 153/94 H Blood Pressure Mean 117 Blood Pressure Position Pulse Oximetry Oxygen Delivery Method Sepsis Recent Fever Within 48 Hours Sepsis New/Unexplained Change in Mental Status Sepsis Action Taken by Nursing 08/02/23 09:00 Temperature Temperature Source Pulse Rate Pulse Rate from SpO2 Sensor Pulse Rhythm Pulse Strength Respiratory Rate Respiratory Effort / Characteristics Respiratory Depth Respiratory Pattern Blood Pressure 136/87 Blood Pressure Mean 95 Blood Pressure Position Pulse Oximetry Oxygen Delivery Method Sepsis Recent Fever Within 48 Hours Sepsis New/Unexplained Change in Mental Status Sepsis Action Taken by Nursing Laboratory Data 08/02/23 05:58 08/02/23 05:58 Lab Results 08/02/23 08/02/23 Range/Units 05:58 07:25 WBC 10.89 H (4.8-10.8) K/ul RBC 4.59 L (4.70-6.10) M/uL Hgb 13.3 L (14.0-18.0) g/dl Hct 40.3 L (42.0-52.0) % MCV 87.8 (80.0-100.0) fL MCH 29.0 (25.0-34.0) pg MCHC 33.0 (32.0-36.0) g/dL RDW Std Deviation 43.8 (36.4-46.3) fL RDW Coeff of Osmin 13.7 (11.5-14.5) % Plt Count 226 (130-400) K/uL MPV 11.0 (9.4-12.4) fL Immature Gran % (Auto) 0.6 % Neut % (Auto) 77.4 % Lymph % (Auto) 14.0 % Carbon % (Auto) 5.1 % Eos % (Auto) 2.4 % Baso % (Auto) 0.5 % Neut # (Auto) 8.44 H (1.40-6.50) K/uL Lymph # (Auto) 1.52 (1.20-3.40) K/uL Carbon # (Auto) 0.56 (0.11-0.59) K/uL Eos # (Auto) 0.26 (0.00-0.50) K/uL Baso # (Auto) 0.05 (0.00-0.20) K/uL Immature Gran # (Auto) 0.06 (0.01-0.20) K/uL Sodium 140 (136-145) mmol/L Potassium 3.9 (3.5-5.1) mmol/L Chloride 106 (98-107) mmol/L Carbon Dioxide 27 (21-32) mmol/L Anion Gap 7 (3-11) BUN 24 H (6-23) mg/dl Creatinine 1.06 (0.6-1.4) mg/dl Est Cr Clr Drug Dosing 138.3 ml/min Est GFR ( Amer) 106.4 ml/min Est GFR (Non-Af Amer) 91.8 ml/min BUN/Creatinine Ratio 22.6 H (10-20) Glucose 173 H (70-99(Fasting)) mg/dl Calcium 9.8 (8.6-10.3) mg/dl Total Bilirubin 0.5 (0.2-1.0) mg/dl AST 36 (13-39) U/L ALT 53 H (7-52) U/L Alkaline Phosphatase 82 (34-104) U/L Total Protein 7.2 (6.0-8.3) gm/dl Albumin 4.3 (3.4-5.0) gm/dl Globulin 2.9 (2.5-4.0) gm/dl Albumin/Globulin Ratio 1.5 (0.9-2) Lipase 91 H (11-82) U/L Urine Color Yellow Urine Appearance Clear (Clear) Urine pH 6.0 (4.5-7.5) Ur Specific [place] 1.017 (1.000-1.030) Urine Protein Negative (Negative) Urine Glucose (UA) Negative (Negative) Urine Ketones Negative (Negative) Urine Blood 3+ H (Negative) Urine Nitrite Negative (Negative) Urine Bilirubin Negative (Negative) Urine Urobilinogen Negative (Negative) Ur Leukocyte Esterase 2+ H (Negative) Urine WBC (Auto) 10-30 H (0-5) /hpf Urine RBC (Auto) 10-30 H (0-4) /hpf U Hyaline Cast (Auto) 1-5 (0-5) /lpf U Epithel Cells (Auto) 0-5 (0-5) /lpf Urine Bacteria (Auto) 4+ H (Negative) Administered Medications Cefepime HCl 2,000 mg/ Syringe 20 mls @ 5 mls/min IV Q8H [facility]; Protocol Stop: 08/12/23 09:59 Last Admin: 08/02/23 11:18 Dose: 5 mls/min Documented By: KLEVER Lactated Ringer's (Lr) 1,000 mls @ 125 mls/hr IV .Q8H [facility] Stop: 08/02/23 18:14 Last Admin: 08/02/23 11:17 Dose: 125 mls/hr Documented By: KLEVER Lamotrigine (Lamotrigine 25 Mg Tab) 50 mg PO QAM [facility]; Protocol Stop: 09/01/23 09:59 Last Admin: 08/02/23 10:07 Dose: 50 mg Documented By: KELVIN Discontinued Medications Sodium Chloride (Nss) 1,000 mls @ 999 mls/hr IV .Q1H1M [facility] Stop: 08/02/23 08:45 Last Infusion: 08/02/23 09:42 Dose: Infused Documented By: Admin: 08/02/23 08:13 Dose: 999 mls/hr Documented By: Infusion: 08/02/23 07:43 Dose: Infused Documented By: Admin: 08/02/23 06:42 Dose: 999 mls/hr Documented By: AMY Ceftriaxone Sodium (Rocephin) 2,000 mg in 50 mls @ 100 mls/hr IV NOW STA Stop: 08/02/23 09:13 Last Infusion: 08/02/23 09:42 Dose: Infused Documented By: Admin: 08/02/23 08:59 Dose: 100 mls/hr Documented By: KELVIN Ketorolac Tromethamine (Ketorolac Tromethamine 15 Mg/Ml Vial) 15 mg IV NOW ONE Stop: 08/02/23 06:36 Last Admin: 08/02/23 06:41 Dose: 15 mg Documented By: AMY Morphine Sulfate (Morphine Sulfate 10 Mg/Ml Carp/Vial) 6 mg IV NOW STA Stop: 08/02/23 08:45 Last Admin: 08/02/23 08:59 Dose: 6 mg Documented By: KELVIN Ondansetron HCl (Ondansetron Inj 2 Mg/Ml 2 Ml Vial) 4 mg IV NOW STA Stop: 08/02/23 06:37 Last Admin: 08/02/23 06:41 Dose: 4 mg Documented By: AMY Sertraline HCl (Sertraline Hcl 50 Mg Tablet) 50 mg PO NOW ONE Stop: 08/02/23 09:42 Last Admin: 08/02/23 10:07 Dose: 50 mg Documented By: KELVIN Tamsulosin HCl (Tamsulosin Hcl 0.4 Mg Cap) 0.4 mg PO NOW ONE Stop: 08/02/23 09:15 Last Admin: 08/02/23 09:29 Dose: 0.4 mg Documented By: KELVIN Imaging Data Radiologist's Impression: Abdomen/Pelvis CT 08/02/23 06:35 CT SCAN OF THE ABDOMEN AND PELVIS WITHOUT IV CONTRAST CLINICAL HISTORY: Right flank pain. COMPARISON STUDY: Abdominal CT dated 10/08/2020 TECHNIQUE: CT scan of the abdomen and pelvis is performed from the lung bases to the proximal femora. Images are reviewed in the axial, sagittal, and coronal planes. IV contrast was not administered for this examination. A dose lowering technique was utilized adhering to the principles of ALARA. CT DOSE: 1479.25 mGy.cm FINDINGS: Lung bases: The heart is normal in size and without pericardial effusion. The lung bases are clear. There is a small hiatal hernia. Liver: The unenhanced liver is enlarged, measuring 24 cm in length. Attenuation is diffusely diminished indicating steatosis. Nodularity of the surface contour suggests early morphologic changes of cirrhosis. There is no intrahepatic biliary ductal dilatation. Gallbladder: Surgically absent noting clips in the gallbladder fossa. Spleen: Normal in size and attenuation. Pancreas: Unremarkable. Adrenal glands: Unremarkable. Kidneys: The unenhanced kidneys are normal in size. There is a 6 mm obstructing calculus in the mid right ureter seen on image #242. This is located at the level of L5 and causes mild right hydroureteronephrosis. There is associated perinephric stranding. An additional punctate nonobstructing calculus is seen in the right lower pole. A 2 mm nonobstructing calculus is noted on the left. There is no left-sided hydronephrosis. There is no evidence of contour deforming renal mass lesion. Abdominal vasculature: The abdominal aorta is normal in course and caliber. Bowel: There are scattered colonic diverticula without CT evidence of acute diverticulitis. No bowel obstruction is identified. The appendix is well- visualized and normal. Peritoneum: There is no intraperitoneal free air or abdominal ascites. There is a fat-containing umbilical hernia. Lymphadenopathy: None. Pelvic viscera: The bladder, prostate, and seminal vesicles are normal as visualized. Skeletal structures: No lytic or blastic lesions are seen. Posterior disc osteophyte complexes are noted at L4-L5 and L5-S1. There is mild sclerotic change noted in the sacroiliac joints. IMPRESSION: 1. There is a 6 mm obstructing calculus in the mid right ureter. This causes mild right hydroureteronephrosis. 2. Additional small nonobstructing renal calculi are seen bilaterally. 3. The liver is enlarged, steatotic, and shows early morphologic changes of cirrhosis. 4. Additional findings as above. ACT 112: Negative or not required by law. Electronically signed by: Gaurav Crisostomo M.D. 08/02/2023 8:05 AM Discharge Plan Visit Data Chief Complaint: Flank Pain ED Provider: Mik Vazquez Discharge Problem: Renal colic, UTI (urinary tract infection), Vomiting Discharge Instructions Interventions: ED Discharge Assessment Last Done: 08/02/23 09:57 Discharge Problem: UTI (urinary tract infection) Qualifiers: Urinary tract infection type: acute cystitis Hematuria presence: with hematuria Qualified Code(s): N30.01 - Acute cystitis with hematuria Vomiting Qualifiers: Vomiting type: unspecified Nausea presence: unspecified Qualified Code(s): R 11.10 - Vomiting, unspecified
[2023-08-02] MEDS ORDERED: ONDANSETRON INJ 2 MG/ML 2 ML VIAL IV STA (06:36)
[2023-08-02] MEDS: SODIUM CHLORIDE 0.9% 1,000 ML IV SCH ×2 (06:42→08:13)
[2023-08-02 07:41] LABS: Appearance Urine Clear (Clear); Bacteria Urine Automated 4+ (Negative); Bilirubin Urine Negative (Negative); Blood Urine 3+ (Negative); Color Urine Yellow; Epithelial Cell Urine Auto 0-5 /lpf (0-5); Glucose Urine UA Negative (Negative); Ketones Urine Negative (Negative); Leukocyte Esterase Urine 2+ (Negative); Nitrite Urine Negative (Negative); Protein Urine Negative (Negative); Specific Gravity Urine 1.017 (1.000-1.030); Urobilinogen Urine Negative (Negative)
--- NOTE | 2023-08-02 08:07 | CT Scan Report ---
CT SCAN OF THE ABDOMEN AND PELVIS WITHOUT IV CONTRAST CLINICAL HISTORY: Right flank pain. COMPARISON STUDY: Abdominal CT dated 10/08/2020 TECHNIQUE: CT scan of the abdomen and pelvis is performed from the lung bases to the proximal femora. Images are reviewed in the axial, sagittal, and coronal planes. IV contrast was not administered for this examination. A dose lowering technique was utilized adhering to the principles of ALARA. CT DOSE: 1479.25 mGy.cm FINDINGS: Lung bases: The heart is normal in size and without pericardial effusion. The lung bases are clear. T here is a small hiatal hernia. Liver: The unenhanced liver is enlarged, measuring 24 cm in length. Attenuation is diffusely diminish ed indicating steatosis. Nodularity of the surface contour suggests early morphologic changes of cirr hosis. There is no intrahepatic biliary ductal dilatation. Gallbladder: Surgically absent noting clips in the gallbladder fossa. Spleen: Normal in size and attenuation. Pancreas: Unremarkable. Adrenal glands: Unremarkable. Kidneys: The unenhanced kidneys are normal in size. There is a 6 mm obstructing calculus in the mid r ight ureter seen on image #242. This is located at the level of L5 and causes mild right hydrouretero nephrosis. There is associated perinephric stranding. An additional punctate nonobstructing calculus is seen in the right lower pole. A 2 mm nonobstructing calculus is noted on the left. There is no lef t-sided hydronephrosis. There is no evidence of contour deforming renal mass lesion. Abdominal vasculature: The abdominal aorta is normal in course and caliber. Bowel: There are scattered colonic diverticula without CT evidence of acute diverticulitis. No bowel obstruction is identified. The appendix is well-visualized and normal. Peritoneum: There is no intraperitoneal free air or abdominal ascites. There is a fat-containing umbi lical hernia. Lymphadenopathy: None. Pelvic viscera: The bladder, prostate, and seminal vesicles are normal as visualized. Skeletal structures: No lytic or blastic lesions are seen. Posterior disc osteophyte complexes are no arabella at L4-L5 and L5-S1. There is mild sclerotic change noted in the sacroiliac joints. IMPRESSION: 1. There is a 6 mm obstructing calculus in the mid right ureter. This causes mild right hydroureteron ephrosis. 2. Additional small nonobstructing renal calculi are seen bilaterally. 3. The liver is enlarged, steatotic, and shows early morphologic changes of cirrhosis. 4. Additional findings as above. ACT 112: Negative or not required by law. Electronically signed by: Gaurav Crisostomo M.D. 08/02/2023 8:05 AM
[2023-08-02] MEDS ORDERED: MoRPHine SULFATE 10 MG/ML CARP/VIAL IV STA (08:44)
[2023-08-02] MEDS ORDERED: cefTRIAXone SODIUM 2,000 MG/50 ML BAG IV STA (08:44)
[2023-08-02] MEDS ORDERED: TAMSULOSIN HCL 0.4 MG CAP PO ONE (09:14)
[2023-08-02] MEDS ORDERED: MoRPHine SULFATE 2 MG/ML CARP IV PRN (09:15)
[2023-08-02] MEDS ORDERED: POLYETHYLENE (MIRALAX) 17 GM PACK PO PRN (09:15)
--- NOTE | 2023-08-02 09:26 | History & Physical Report ---
Date of Service August 02, 2023 Assessment & Plan (1) Right ureteral stone: (2) Kidney stone: Plan: - Admit to med surg - Continue cefepime IV, was given dose of ceftriaxone in the ER, WBC 10 k, no fever, UA appears infected with esterase 2 +, Urine WBC 10-30, bacteria 4 + - Urology consult - Strain urine, strict I/Os, continue maintenance fluids - Continue pain meds, bowel regimen - CT abdomen reviewed: 1. There is a 6 mm obstructing calculus in the mid right ureter. This causes mild right hydroureteronephrosis. 2. Additional small nonobstructing renal calculi are seen bilaterally. 3. The liver is enlarged, steatotic, and shows early morphologic changes of cirrhosis. - May consider GI referral with liver findings as above, and encourage diet and exercise for weight loss (3) Bipolar disorder: (4) Anxiety and depression: (5) Schizoaffective disorder: Plan: - Continue zoloft, lamictal, geodon HS, will order morning meds now - Chronic, Stable - Encourage continuation/ follow up with psych, therapist - pt reports remote hx of hallucination verbal and auditory, none currently (6) Morbid obesity with BMI of 50.0-59.9, adult: Plan: - BMI of 56.6, diet and weight loss encouraged at bedside (7) Sleep apnea: Plan: - Cont CPAP HS (8) Anemia: Plan: - Will check iron panel - Hgb and Hct slightly low (9) DM II (diabetes mellitus, type II), controlled: Plan: - Check A1C with am labs, pt is supposed to be on metformin but has not been taking it - ISS with accuchecks achs - Keep NPO for now, once allowed diet can have DM/ HH diet (10) Hyperlipidemia: Plan: - Check lipids with am labs DVT ppx: teds, scds Lines: 2 PIV FEN/GI: NPO CODE: FULL Dispo: From home, likely to remain in the hospital x 1-2 days A total of 75 minutes were spent with greater than 50% of that time face to face with the patient, personally reviewing all current laboratories, imaging studies, past medication reconciliation, outpatient chart review, and discussion with specialists to collaborate care for the patient with attending. Please see attending documentation for corrections and/or additions. History of Present Illness Primary Care Provider: Rona Powell DO This is a 33 yo M with PMHx of bipolar type 1, schizoaffective disorder on geodon, with DM II secondary to antipsychotic medication, anxiety, KATTY on cpap, and morbid obesity with BMI of 56.6. He has hx of nephrolithiasis a few years ago. Pt notes that his pain started around 1:30 am and was lying down to go to bed, but at 4 am was awoken by sharp pain in his right lower back/abdomen. He took some pain medication, advil x 2, overnight but didn't seem to help. He denies dysuria, hematuria, fever, chills or sweats. Pain felt similar to previous kidney stone so called EMS and presented here. He is taking geodon, sertraline. He is supposed to be taking metformin but isn't taking it. He reports not being good with taking mediation in general. Pt notes his psych history makes him less likely to follow through with medications and check ups. He states his mood overall is ok currently, pt is taking lamictal, geodon and sertraline. This morning missed meds due to the above. Allergies Allergy/AdvReac Type Severity Reaction Status Date / Time No Known Drug Allergies Allergy Unknown Verified 10/16/20 13:12 POLLEN Allergy SNEEZE, Uncoded 10/16/20 13:12 WATERY EYES Home Medications Medication Instructions Recorded Confirmed Type Medical Li 1 dose inhalation UD PRN Anxiety 09/12/19 08/02/23 History albuterol sulfate 90 mcg/actuation 2 puff inhalation Q4 PRN Cough 10/08/20 08/02/23 History aerosol inhaler lamotrigine 25 mg tablet (Lamictal) 50 mg PO QAM 08/02/23 08/02/23 History sertraline 50 mg tablet (Zoloft) 50 mg PO QAM 08/02/23 08/02/23 History ziprasidone HCl 40 mg capsule 40 mg PO HS 08/02/23 08/02/23 History (Geodon) Past Med/Surg History Medical History (Updated 08/02/23 @ 10:09 by Natalya Sheikh PA-C) History of kidney stones Abdominal pain REASON FOR EGD Bipolar disorder Attention deficit disorder (ADD) Anxiety and depression Hyperlipidemia no medications Sleep apnea CPAP DEVICE Surgical History History of colonoscopy [place] teeth removed History of cholecystectomy Family History Other No significant family history Social History Smoking Status: Current every day smoker Cigarettes Per Day: LAST SMOKED CIGAR 3 MONTHS AGO; Second Hand Exposure: No; Do You Dip or Chew Tobacco: No; Hx Alcohol Use: No Hx Substance Use: No (ONLY USES MEDICAL MARIJUANA) Preferred Language: Uzbek Communication Ability: Effective Hospitality Associate Required: No Beliefs That Will Affect Care: None Current Living Situation: Alone Feels Safe at Home: Yes Assistive Devices: CPAP and Glasses Review of Systems Review of Systems: Constitutional: No fever, sweats or chills Eyes: No diplopia, no worsening or blurred vision ENT: normal hearing, no trouble swallowing Respiratory: No cough, sputum, dyspnea at rest or on exertion Cardiovascular: No chest pain, tightness or palpitations Abdomen: No pain, nausea, vomiting, diarrhea or constipation : As per HPI Musculoskeletal: No joint pain, calf pain, swelling Neurologic: No weakness, numbness/tingling, or balance problems Psychiatric: No anxiety or depression Skin: No rash or itch Physical Exam Physical Exam: Please refer to physician addendum for PE. Results & Data Results & Data Vital Signs (Past 12 Hours) Vital Signs Temp Pulse Resp BP Pulse Ox O2 Del Method 08/02/23 08:07 79 20 156/84 H 95 Room Air 08/02/23 07:13 96 H 20 179/100 H 92 Room Air 08/02/23 06:08 78 20 97 Room Air 08/02/23 06:03 75 13 156/86 H 08/02/23 06:00 36.7 C 88 18 156/86 H 97 Room Air 08/02/23 05:54 82 Laboratory Results 08/02/23 07:25 Urine Culture - Pending Urine,Clean Catch 08/02/23 08/02/23 07:25 05:58 WBC 10.89 H RBC 4.59 L Hgb 13.3 L Hct 40.3 L MCV 87.8 MCH 29.0 MCHC 33.0 RDW Std Deviation 43.8 RDW Coeff of Osmin 13.7 Plt Count 226 MPV 11.0 Immature Gran % (Auto) 0.6 Neut % (Auto) 77.4 Lymph % (Auto) 14.0 [place] % (Auto) 5.1 Eos % (Auto) 2.4 Baso % (Auto) 0.5 Neut # (Auto) 8.44 H Lymph # (Auto) 1.52 [place] # (Auto) 0.56 Eos # (Auto) 0.26 Baso # (Auto) 0.05 Immature Gran # (Auto) 0.06 Sodium 140 Potassium 3.9 Chloride 106 Carbon Dioxide 27 Anion Gap 7 BUN 24 H Creatinine 1.06 Est Cr Clr Drug Dosing 138.3 Est GFR ( Amer) 106.4 Est GFR (Non-Af Amer) 91.8 BUN/Creatinine Ratio 22.6 H Glucose 173 H Calcium 9.8 Total Bilirubin 0.5 AST 36 ALT 53 H Alkaline Phosphatase 82 Total Protein 7.2 Albumin 4.3 Globulin 2.9 Albumin/Globulin Ratio 1.5 Lipase 91 H Urine Color Yellow Urine Appearance Clear Urine pH 6.0 Ur Specific Clifford 1.017 Urine Protein Negative Urine Glucose (UA) Negative Urine Ketones Negative Urine Blood 3+ H Urine Nitrite Negative Urine Bilirubin Negative Urine Urobilinogen Negative Ur Leukocyte Esterase 2+ H Urine WBC (Auto) 10-30 H Urine RBC (Auto) 10-30 H U Hyaline Cast (Auto) 1-5 U Epithel Cells (Auto) 0-5 Urine Bacteria (Auto) 4+ H Diagnostic Findings Abdomen/Pelvis CT 08/02/23 06:35 CT SCAN OF THE ABDOMEN AND PELVIS WITHOUT IV CONTRAST CLINICAL HISTORY: Right flank pain. COMPARISON STUDY: Abdominal CT dated 10/08/2020 TECHNIQUE: CT scan of the abdomen and pelvis is performed from the lung bases to the proximal femora. Images are reviewed in the axial, sagittal, and coronal planes. IV contrast was not administered for this examination. A dose lowering technique was utilized adhering to the principles of ALARA. CT DOSE: 1479.25 mGy.cm FINDINGS: Lung bases: The heart is normal in size and without pericardial effusion. The lung bases are clear. There is a small hiatal hernia. Liver: The unenhanced liver is enlarged, measuring 24 cm in length. Attenuation is diffusely diminished indicating steatosis. Nodularity of the surface contour suggests early morphologic changes of cirrhosis. There is no intrahepatic biliary ductal dilatation. Gallbladder: Surgically absent noting clips in the gallbladder fossa. Spleen: Normal in size and attenuation. Pancreas: Unremarkable. Adrenal glands: Unremarkable. Kidneys: The unenhanced kidneys are normal in size. There is a 6 mm obstructing calculus in the mid right ureter seen on image #242. This is located at the level of L5 and causes mild right hydroureteronephrosis. There is associated perinephric stranding. An additional punctate nonobstructing calculus is seen in the right lower pole. A 2 mm nonobstructing calculus is noted on the left. There is no left-sided hydronephrosis. There is no evidence of contour deforming renal mass lesion. Abdominal vasculature: The abdominal aorta is normal in course and caliber. Bowel: There are scattered colonic diverticula without CT evidence of acute diverticulitis. No bowel obstruction is identified. The appendix is well- visualized and normal. Peritoneum: There is no intraperitoneal free air or abdominal ascites. There is a fat-containing umbilical hernia. Lymphadenopathy: None. Pelvic viscera: The bladder, prostate, and seminal vesicles are normal as visualized. Skeletal structures: No lytic or blastic lesions are seen. Posterior disc osteophyte complexes are noted at L4-L5 and L5-S1. There is mild sclerotic change noted in the sacroiliac joints. IMPRESSION: 1. There is a 6 mm obstructing calculus in the mid right ureter. This causes mild right hydroureteronephrosis. 2. Additional small nonobstructing renal calculi are seen bilaterally. 3. The liver is enlarged, steatotic, and shows early morphologic changes of cirrhosis. 4. Additional findings as above. ACT 112: Negative or not required by law. Electronically signed by: Gaurav Crisostomo M.D. 08/02/2023 8:05 AM Code Status & VTE Plan Code Status Full code VTE Prophylaxis Plan VTE Prophylaxis will be ordered: Yes Supervising Physician Co-Signing Physician Notes I have seen and discussed the case with the collaborating TERESA. I agree with the above H&P. I have reviewed and confirmed the patients medical history, the findings on physical examination, and the patients diagnosis and treatment plan with Aguilar MOORE and agree with the information documented. In short, Mr. Xiong is a 33 year old gentleman with history of diabetes mellitus, prior nephrolithiasis, schizoaffective disorder/bipolar disorder, morbid obesity who is being admitted for management of acute cystitis iso 6mm nephrolithiasis. Patient states he noted pain this am in the right flank, that awoke him abruptly from his sleep, not alleviated with advil. Labs reveal leukocytosis to 10.89, lipase 91, Alt 53, UA+blood, LE+, 4+bacteria. CT revealed 6mm obstructing stone in midright ureter with subsequent right hydroureteronephrosis, as well as enlarged steatotic liver with early changes for cirrhosis. GENERAL APPEARANCE: AxOx4, gentleman with morbidly obesity, no acute distress. HEENT: NC, AT. MMM. EOMI, clear conjunctiva, oropharynx clear. NECK: Supple without lymphadenopathy. No stiffness or restricted ROM. HEART: Normal rate and regular rhythm, normal S1/S1, no m/r/g LUNGS: CTAB, moving air well. No crackles or wheezes are heard. ABDOMEN: Soft, nontender, nondistended with good bowel sounds heard. EXTREMITIES: Without cyanosis, clubbing or edema. NEUROLOGICAL: Grossly nonfocal. Alert and oriented, moving all 4 extremities. CN not formally tested but appear grossly intact. Skin: Warm and dry without any rash. noted hyperpigmentation around neck Plan #Right Nephrolithiasis c/b mild right hydroureteronephrosis #Acute cystis -Tamsulosin 0.4 mg qam -Urology consult -Cefepime q8h until culture returns -NPO until further recommendations from Urology -IVF LR @125 #Hepatomegaly with steatosis, early morphology for cirrhosis #Lipase elevated Benign exam -LFTs in am and repeat lipase -Will need GI follow up as OP #Normocytic anemia Multiple ongoing medical conditions/nutritional concerns likely contributing likely to downtrend with fluid resuscitation; no concerns for bleeding at this time -Anemia labs in am -Trend CBC, transfuse less than 7 #Diabetes mellitus #Morbid obesity BMI 56.6 denies taking metformin at home -Lipid panel and A1C in am -Ensure counselling regarding lifestyle modifications #Schizoaffective disorder #Bipolar disorder Reports history of tactile/auditory/visual hallucinations, denies any at this moment -Continue home medications SCDS Admit med/surg Rest of plan as above
[2023-08-02] MEDS ORDERED: SERTRALINE HCL 50 MG TABLET PO ONE (09:41)
[2023-08-02] MEDS ORDERED: GLUCOSE 40% GEL 15 GM TUBE PO PRN (09:57)
[2023-08-02] MEDS ORDERED: DEXTROSE 50% 50 ML SYRINGE IV PRN (09:57)
[2023-08-02] MEDS ORDERED: ACETAMINOPHEN 325 MG TAB PO PRN (09:57)
[2023-08-02] MEDS ORDERED: GLUCOSE 10 TAB/TUBE PO PRN (09:57)
[2023-08-02] MEDS ORDERED: ALBUTEROL HFA 8 GM INHALER INH PRN (09:57)
[2023-08-02] MEDS ORDERED: GLUCAGON FOR INJ 1 MG VIAL SQ PRN (09:57)
[2023-08-02] MEDS ORDERED: CARBOHYDRATES FOR HYPOGLYCEMIA PO PRN (09:57)
[2023-08-02] MEDS: lamoTRIgine 25 MG TAB PO SCH (10:07)
[2023-08-02] MEDS ORDERED: LACTATED RINGER'S 1,000 ML IV SCH (10:15)
[2023-08-02] MEDS: CEFEPIME 2,000 MG in SYRINGE 0 ML IV SCH ×2 (11:18→17:35)
[2023-08-02] MEDS ORDERED: INSULIN ASPART PER UNIT CHARGE SC SCH (11:30)
--- NOTE | 2023-08-02 12:02 | Urology Consultation ---
Date of Consultation August 02, 2023 Assessment & Plan (1) Right ureteral stone: 33yo/M admitted for right flank pain secondary to 6 mm mid right ureteral stone and suspicion of UTI. Patient is afebrile and hemodynamically stable Labscreatinine 1.06, WBC 10.89 UA with 2+ leukocyte esterase, 10-30 WBC, 10-30 RBC, 4+ bacteria Urine culture is pending Received ceftriaxone in the ED, transitioned to cefepimecontinue antibiotics and narrow per sensitivity data when available Discussed options for stone management including trial of passage vs surgical intervention with right ureteral stent placement inpatient or outpatient treatment options if pain is controlled He is currently comfortable and there is no emergent need for stent placement today Okay for diet today, will make NPO at midnight for reassessment We discussed outpatient management of stone if he remains stable and pain is controlled Will check KUB in the am to check stone visibility Continue with supportive care, antibiotics and medical management per primary service will follow History of Present Illness Attending Physician: Rebekah Beltre MD History of Present Illness This is a 33-year-old male with past medical history of morbid obesity, type 2 diabetes, schizoaffective disorder, sleep apnea, bipolar disorder, nephrolithiasis who presented to the emergency department today with right flank pain that started earlier this morning. Work-up with CT A/P notable for an obstructing 6 mm stone in the right mid ureter with mild hydronephrosis, additional small nonobstructing renal calculi bilaterally. On arrival, he was afebrile, hypertensive but otherwise stable vitals. Lab work showed mild leukocytosis 10.89, hemoglobin 13.3, creatinine 1.06. Urinalysis showed 3+ blood, 2+ leukocyte esterase, 10-30 WBC, 10-30 RBC, 4+ bacteria. Urine culture collected. He was admitted to the medicine service for right ureteral stone with concern of UTI. ED course included IV fluids, ceftriaxone, ketorolac, and Zofran. Patient seen and examined in the emergency department. He was asleep and resting in bed with BiPAP, arouses easily to his name. He reports sudden onset of right flank pain awakening him from sleep this am, which prompted ER presentation. He currently denies flank pain. He is voiding without difficulty, no dysuria or hematuria. No nausea or vomiting at present. No feve r or chills. Prior history of stones which he has passed spontaneously. No prior surgical intervention for stones. Allergies Allergy/AdvReac Type Severity Reaction Status Date / Time No Known Drug Allergies Allergy Unknown Verified 10/16/20 13:12 POLLEN Allergy SNEEZE, Uncoded 10/16/20 13:12 WATERY EYES Home Medications Medication Instructions Recorded Confirmed Type Medical Li 1 dose inhalation UD PRN Anxiety 09/12/19 08/02/23 History albuterol sulfate 90 mcg/actuation 2 puff inhalation Q4 PRN Cough 10/08/20 08/02/23 History aerosol inhaler lamotrigine 25 mg tablet (Lamictal) 50 mg PO QAM 08/02/23 08/02/23 History sertraline 50 mg tablet (Zoloft) 50 mg PO QAM 08/02/23 08/02/23 History ziprasidone HCl 40 mg capsule 40 mg PO HS 08/02/23 08/02/23 History (Bony) Patient History Medical History History of kidney stones Abdominal pain REASON FOR EGD Bipolar disorder Attention deficit disorder (ADD) Anxiety and depression Hyperlipidemia no medications Sleep apnea CPAP DEVICE Surgical History History of colonoscopy [place] teeth removed History of cholecystectomy Family History Other No significant family history Social History Smoking Status: Current every day smoker Cigarettes Per Day: LAST SMOKED CIGAR 3 MONTHS AGO; Second Hand Exposure: No; Do You Dip or Chew Tobacco: No; Hx Alcohol Use: No Hx Substance Use: No (ONLY USES MEDICAL MARIJUANA) Preferred Language: Kiswahili Communication Ability: Effective Medical Esthetician Required: No Beliefs That Will Affect Care: None Current Living Situation: Alone Feels Safe at Home: Yes Assistive Devices: CPAP and Glasses Review of Systems Review of Systems: All systems reviewed & are unremarkable except as noted in HPI & below Physical Exam Constitutional: well developed, well nourished and + morbidly obese; no acute distress and not ill appearing Respiratory: no respiratory distress and no labored breathing Bipap in place Cardiovascular: Rate/Rhythm: regular rate Gastrointestinal (Abdomen): Inspection/Auscultation: abdomen normal to inspection Musculoskeletal: Head/Neck/Chest: normocephalic Neurologic: moves all extremities and awake Psychiatric: Orientation: alert and oriented x 3 Results & Data Vital Signs (Past 12 Hours) Vital Signs Temp Pulse Resp BP Pulse Ox O2 Del Method FiO2 08/02/23 10:36 80 17 97 21 08/02/23 09:57 Room Air 08/02/23 09:30 97 H 16 08/02/23 09:30 149/93 H 08/02/23 09:29 86 08/02/23 09:00 136/87 08/02/23 09:00 80 12 08/02/23 08:30 91 H 24 08/02/23 08:30 21 153/94 H 08/02/23 08:07 79 20 156/84 H 95 Room Air 08/02/23 08:00 156/84 H 08/02/23 08:00 75 22 96 08/02/23 07:30 140/82 08/02/23 07:30 79 20 94 08/02/23 07:13 96 H 20 179/100 H 92 Room Air 08/02/23 07:00 179/100 H 08/02/23 07:00 72 21 92 08/02/23 06:44 164/122 H 08/02/23 06:44 75 20 99 08/02/23 06:34 84 20 93 08/02/23 06:08 78 20 97 Room Air 08/02/23 06:03 75 13 156/86 H 08/02/23 06:00 36.7 C 88 18 156/86 H 97 Room Air 08/02/23 05:54 82 PG Care Time/CCT Total # of Minutes Spent Total Time Spent with Patient: Total time spent is greater than 50% in coordination of care (as documented) at patient's floor/unit and/or counseling patient: Coding Level of Care Code 87792 IN/OBS CONSULT LVL 4,60M Diagnoses Right ureteral stone N20.1
--- NOTE | 2023-08-02 12:16 | Electrocardiogram Report ---
Test Reason : Blood Pressure : / mmHG Vent. Rate : 073 BPM Atrial Rate : 073 BPM P-R Int : 148 ms QRS Dur : 096 ms QT Int : 394 ms P-R-T Axes : 021 032 019 degrees QTc Int : 434 ms Normal sinus rhythm with sinus arrhythmia Normal ECG When compared with ECG of 09-SEP-2020 18:58, No significant change was found Confirmed by Darrion García ([id number]) on 08/02/2023 12:15:35 PM Referred By: REFERRED SELF Confirmed By:Darrion García
[2023-08-02] MEDS: INSULIN ASPART PER UNIT CHARGE SC SCH ×2 (13:54→18:49)
--- OUTSIDE RECORDS SUMMARY | 2023-08-02 14:01 | External Medical Summary | Summary of Care ---
Author Name Unknown Organization [facility] Address [address] [facility] [place] [address] Phone [phone] Care Team Providers Care Payer Specialist Name Role Phone Rona Powell DO Primary Care Provider [phone] Encounter Details Date Type Department Care Team Description 04/08/2023 Telemedicine Sleep Disorders Ctr [facility] [address] [place] [address] Gwendolyn Davis DO [address] [facility] [place] [address] Obstructive sleep apnea* Allergies Active Allergy Reactions Severity Noted Date Comments Pollen 04/13/2015 documented as of this encounter (statuses as of 04/08/2023) Medications Medication Sig Dispensed Refills Start Date End Date Status Loratadine 10 MG Oral Capsule Take 10 mg by mouth daily. 0 Active ARIPiprazole 10 MG Oral Tablet Take 10 mg by mouth daily. 0 Active Terbinafine HCl 1 % External Cream (LamISIL AT ATHLETE'S FOOT)Indications:Ti klaudia of groin Apply topically to affected area 2 times a day. Apply to groin area. 30 g 0 08/07/2020 Active ProAir HFA 108 (90 Base) MCG/ACT Inhalation Aerosol SolutionIndications :Mild intermittent reactive airway disease without complication Inhale 2 Puffs by mouth every 4 hours as needed for Cough or Wheezing. 18 g 5 09/10/2020 Active Benztropine Mesylate 1 MG Oral Tablet (Cogentin) 0 09/18/2020 Active LancetsIndications: Type 2 diabetes mellitus without complication, without long-term current use of insulin (HCC) Use as directed. 100 Each 11 07/13/2021 Active metFORMIN HCl 500 MG Oral Tablet (Glucophage)Indicat ions:Prediabetes TAKE ONE-HALF TABLET BY MOUTH TWICE A DAY WITH MORNING AND EVENING MEALS 90 Tablet 1 08/14/2021 Active Additional Information Patient not taking.Reported on 04/08/2023 Omeprazole 40 MG Oral Capsule Delayed Release (PriLOSEC)Indicatio ns:Gastroesophageal reflux disease with esophagitis without hemorrhage Take by mouth 1 Capsule in the morning. 1 hour before the first meal of the day. 90 Capsule 3 10/12/2021 Active Additional Information Patient not taking.Reported on 04/08/2023 Meloxicam 7.5 MG Oral Tablet Take by mouth 1 Tablet in the morning. 30 Tablet 0 10/30/2021 Active Additional Information Patient not taking.Reported on 04/08/2023 Misc. Devices Please consider custom molded orthotics and shoes Pes planus, equinus, foot pain bilaterally 1 Each 0 10/30/2021 Active Dicyclomine HCl 10 MG Oral Capsule (Bentyl)Indications :Gastroesophageal reflux disease without esophagitis,Abdomin al pain, epigastric TAKE 1 CAP BY MOUTH 4 TIMES A DAY NEEDED FOR ABDOMINAL PAIN 120 Capsule 1 12/23/2021 Active Additional Information Patient not taking.Reported on 04/08/2023 OneTouch Verio In Vitro Strip (Glucose Blood)Indications:T ype 2 diabetes mellitus without complication, without long-term current use of insulin (HCC) USE UP TO 2 TIMES A DAY E11.9 100 Strip 2 01/14/2022 Active lamoTRIgine 25 MG Oral Tablet (LaMICtal) Take 1 Tablet by mouth in the morning and 1 Tablet before bedtime. 0 Active Ziprasidone HCl 20 MG Oral Capsule (Geodon) Take 1 Capsule by mouth at bedtime. 0 Active Sertraline HCl 50 MG Oral Tablet (Zoloft) Take 1 Tablet by mouth at bedtime. 0 Active documented as of this encounter (statuses as of 04/08/2023) Active Problems Problem Noted Date Body mass index (BMI) of 45.0 to 49.9 in adult 11/09/2021 Overview: Per Obesity protocol - Per Obesity protocol - Per Obesity protocol - bmi= 46.93 09/20/16 KATTY (obstructive sleep apnea) 09/20/2020 Gastroesophageal reflux disease without esophagitis 07/19/2019 Depression 10/07/2016 Bipolar depression 10/18/2012 Depression (emotion) 10/18/2012 documented as of this encounter (statuses as of 04/08/2023) Resolved Problems Problem Noted Date Resolved Date Body mass index (BMI) of 40.0 to 44.9 in adult 0 10/13/2020 11/12/2021 Overview: Per Obesity protocol - Per Obesity protocol - bmi= 46.93 09/20/16 Prediabetes 09/08/2020 01/07/2021 Overview: Per Prediabetes protocol Body mass index (BMI) of 45.0 to 49.9 in adult 0 07/16/2019 10/16/2020 Overview: Per Obesity protocol - bmi= 46.93 09/20/16 Body mass index (BMI) of 40.0 to 44.9 in adult 1 07/19/2019 Overview: Per Obesity protocol #1 - bmi= 46.93 09/20/16 Paronychia of thumb 12/07/2016 01/07/2020 Tinea pedis of both feet 12/07/2016 020 Adult BMI 45.0-49.9 kg/sq m 09/20/201611/2016 Overview: bmi= 46.93 09/20/16 Moderate right ankle sprain 09/20/201612/2016 Obesity, morbid (more than 1 00 lbs over ideal weight or BMI > 40) 01/30/2013 09/20/2016 Overview: bmi= 40.19 01/30/13 Pruritus 01/30/2013 01/07/2021 Dermatitis 01/30/2013 10/07/2016 Obesity, Class II, BMI 35-39.9, isolated (see ac tual BMI) 10/18/2012 09/20/2016 documented as of this encounter (statuses as of 04/08/2023) Immunizations Name Administration Dates Next Due Pneumococcal Polysaccharide PPV23 (Pneumovax) SEASONAL INFLUENZA, PF, 6 M & Above, IM , (FLULAVAL or FLUZONE) 09/10/2020,07/19/2019 Seasonal Influenza, Quadrivalent, No Preserve, I M 09/04/2016 TDAP (age 10 and older)(Boostrix) 01/07/2020 documented as of this encounter Social History Tobacco Use Types Packs/Day Years Used Date Smoking Tobacco: Light Smoker Cigars Smokeless Tobacco: Former Quit: 12/31/2009 Comments:Occasional cigar Alcohol Use Standard Drinks/Week Comments No 0 (1 standard drink = 0.6 oz pure alcohol) Pt stopped d/t taking medication. Food Insecurity Answer Date Recorded Within the past 12 months, y ou worried that your food would run out before you got money to buy more. Never true 08/07/2020 Within the past 12 months, t he food you bought just didn't last and you didn't have money to get more. Never true 08/07/2020 Sex Assigned at Date Recorded Not on file Job Start Date Occupation Industry Not on file Not on file Not on file documented as of this encounter Progress Notes * Gwendolyn Davis, DO - 04/08/2023 10:23 AM EDT Sleep Medicine Evaluation [facility] [address] [address] Patient location: HOME. I was in a hospital or clinic location. After connecting through televideo,patient was verified with two unique identifiers. Patient (or authorized legal telephone claims representative) was then informed that this was a Telemedicine visit and being conducted confidentially over secure lines. Methods to assure confidentiality were taken. Patient acknowledged consent and understanding of pr ivacy and security of the Telemedicine visit. The patient agreed to participate. Time dedicated to today's appointment: 30 minutes HPI: Boby Xiong is a(n) 32 year old male presenting for evaluation and management of KATTY. Initially diagnosed with sleep apnea in high school, started CPAP at that time. Seen 06/21/[address] Padilla; using CPAP but sometimes the pressure felt insufficient in the setting of weight gain Split-night PSG 07/05/2019: severe KATTY, AHI 96.2, SpO2 reta 77%, time <89% 41 min, optimal CPAP setting 11 cwp with residual AHI 2.4, SpO2 reta 86%, time <89% 1.1 minute. Recommended APAP 11-18cwp. Setting was subsequently adjusted to 14-19 cwp. He recently got the recall replacement device. Setting on the new device is 12.5. Needs to have this adjusted. Currently does not have the old CPAP/supplies. Had been at 14-19 cwp. Would like adjusted starting pressure, felt like not enough when starting at 14. FFM Subjective PAP adherence: good Sleep refreshing on PAP: yes, when at the right setting; since his new device is at a lower setting, he feels more tired now. Snoring on PAP: possibly Daytime napping: sometimes, for less than an hour Drowsy driving: N/A, he does not drive Interface: FFM Mask leak: not usually Dry nose or dry mouth: sometimes Rash from mask: no Aerophagia: no RLS symptoms: no Morning headaches: no Recent weight change: might be gaining Cedar Sleepiness Scale: 4 Mod F.O.S.Q.: 32 Cedar Sleepiness Scale Question 04/07/2023 10:05 PM EDT - Filed by Patient What is the chance you will doze off in the following situation? Sitting and reading Slight chance of dozing Watching TV No chance of dozing Sitting inactive in a public place, such as a theater or meeting No chance of dozing As a passenger in a car for an hour without a break No chance of dozing Lying down to rest in the afternoon when circumstances permit High chance of dozing When sitting and talking to someone No chance of dozing When sitting quietly after lunch without alcohol No chance of dozing In a car, while stopped for a few minutes in traffic No chance of dozing Score (range: 0 - 24) 4 Functional Outcomes Of Sleep Question 04/07/2023 10:06 PM EDT - Filed by Patient Please complete the following questions. Do you have difficulty concentrating because you are sleepy or tired? Yes, a little Do you have difficulty remembering things because you are sleepy or tired? Yes, moderate Do you have difficulty operating a motor vehicle for short distances (less than 100 miles) because you become sleepy? No Do you have difficulty operating a motor vehicle for long distances (more than 100 miles) because you become sleepy? No Do you have difficulty visiting family or friends in their home because you become sleepy or tired?Yes, moderate Has your relationship with family, friends, or work colleagues been affected because you are sleepyor tired? Yes, a little Do you have difficulty watching a movie or video because you become sleepy or tired? No Do you have difficulty being as active as you want to be in the evening because you are tired or sleepy? No Do you have difficulty being as active as you want to be in the morning because you are tired or sleepy? No Has your mood been affected because you are sleepy or tired? Yes, moderate Score (range: 10 - 40) 32 Flu Vaccine Questionnaire Question 04/07/2023 10:07 PM EDT - Filed by Patient Get your flu shot at your upcoming appointment. Please select one of the options below. I would like to discuss this with my clinician CPAP Compliance: Report date: 12/01/22 % total days used: 100% % days used > 4 hours: 76.7% Average hours per day used: 5h 47m Large leak: 3h 15m AHI: 2.6 /hr Mean pressure: 14.9 cmH2O 90%ile pressure: 16.9 cmH2O Pressure settin-19 cmH2O Equipment: DME Provider is M[facility] Uses a [employer] Auto (note that the above data seems to be from his recalled device; I am not able to see updated data from the recall replacement device that he is currently using). Denies change in PMH or PSH in the interim of care. Patient Active Problem List Diagnosis Code Bipolar depression ([facility]) F31.9 Depression (emotion) F32.A Depression F32.A Gastroesophageal reflux disease without esophagitis K21.9 KATTY (obstructive sleep apnea) G47.33 Body mass index (BMI) of 45.0 to 49.9 in adult ([facility]) Z68.42 Outpatient Medications Marked as Taking for the 04/08/23 encounter (Appointment) with Gwendolyn Alberts, DO Medication Sig lamoTRIgine 25 MG Oral Tablet (LaMICtal) Take 1 Tablet by mouth in the morning and 1 Tablet before bedtime. Sertraline HCl 50 MG Oral Tablet (Zoloft) Take 1 Tablet by mouth at bedtime. Ziprasidone HCl 20 MG Oral Capsule (Geodon) Take 1 Capsule by mouth at bedtime. ProAir HFA 108 (90 Base) MCG/ACT Inhalation Aerosol Solution Inhale 2 Puffs by mouth every 4 hours as needed for Cough or Wheezing. PHYSICAL EXAM: BMI Readings from Last 1 Encounters: 10/12/21 52.33 kg/m PE limited due to telemedicine. Patient does not appear to be in distress. No rash on visible skin on face. Breathing does not appear to be labored. No audible stridor. Speech is clear and appropriate. Appropriate affect. ASSESSMENT/PLAN: Obstructive sleep apnea - good adherence; encourage continued use of CPAP with all sleep - good efficacy of therapy with his prior setting of 14-19, though the setting on the current device (12.5) feels less effective to him, and the pressure of 14 sometimes felt too low; adjust PAP to 16-19 cmH2O - will also request DME troubleshoot remote connection (if not able to access data remotely, may need to work with SD card) - DME: [facility] - Routine cleaning and change of supplies as needed. - Continue to avoid driving when feeling sleepy/drowsy (he does not drive). Follow-up with Sleep Medicine in 6 months. Gwendolyn Davis DO documented in this encounter Plan of Treatment Upcoming Encounters Date Type Specialty Care Team Description 04/11/2023 Office Visit Family Medicine Harman Lai MD [address] [place] [address] Health Maintenance Due Date Last Done Comments Hepatitis B (1 of 3 - 3-dose series) 1990 COVID-19 Vaccine (#1) 1990 HIV Screening 2005 Hepatitis C Screening 2008 Pneumococcal Vaccine: Pediatrics (0 to 5 Years) and At-Risk Patients (6 to 64 Years) (2 - PCV) 01/06/2021 01/07/2020 Depression Screening 08/07/2021 08/07/2020 Influenza Vaccine (FLU shot) (#1) 2023 09/10/2020, 07/19/2019, 07/19/2019, Additional history exists DTaP,Tdap,and Td Vaccines (2 - Td or Tdap) 01/06/2030 01/07/2020 GARDASIL-HPV IMMUNIZATION SERIES Aged Out No longer eligible based on patient's age to complete this topic MENINGOCOCCAL (MENACTRA/MENVEO) Aged Out No longer eligible based on patient's age to complete this topic documented as of this encounter Medical Devices Not on filedocumented as of this encounter Visit Diagnoses Diagnosis Obstructive sleep apnea- Primary Obstructive sleep apnea (adult) (pediatric) documented in this encounter Care Teams Payer Specialist Relationship Specialty Start Date End Date Rona Powell, [address] [place] [address] PCP - General Family Medicine 10/18/12 documented as of this encounter
--- OUTSIDE RECORDS SUMMARY | 2023-08-02 14:01 | External Medical Summary | Summary of Care ---
Author Name Unknown Organization [facility] Address [address] [facility] [address] Phone [phone] Care Team Providers Care Blanket Cutter Hand Name Role Phone Rona Powell DO Primary Care Provider Encounter Details Date Type Department Care Team Description 04/11/2023 Telephone Pulmonary Medicine, [facility] [address] [facility] [place] [address] Gwendolyn Davis DO [address] [facility] [place] [address] Allergies Active Allergy Reactions Severity Noted Date Comments Pollen 04/13/2015 documented as of this encounter (statuses as of 04/11/2023) Medications Medication Sig Dispensed Refills Start Date [...] as of this encounter (statuses as of 04/11/2023) Active Problems Problem Noted Date Body mass index (BMI) of 45.0 to 49.9 in adult 11/09/2021 Overview: Per Obesity protocol - Per Obesity protocol - Per Obesity protocol - bmi= 46.93 09/20/16 KATTY (obstructive sleep apnea) 09/20/2020 Gastroesophageal reflux disease without esophagitis 07/19/2019 Depression 10/07/2016 Bipolar depression 10/18/2012 Depression (emotion) 10/18/2012 documented as of this encounter (statuses as of 04/11/2023) Resolved Problems Problem Noted Date Resolved Date [...] bmi= 46.93 09/20/16 Moderate right ankle sprain 09/20/20160 12/2016 Obesity, morbid (more than 1 00 lbs over ideal weight or BMI > 40) 01/30/2013 09/20/2016 Overview: bmi= 40.19 01/30/13 Pruritus 01/30/2013 01/07/2021 Dermatitis 01/30/2013 10/07/2016 Obesity, Class II, BMI 35-39.9, isolated (see ac tual BMI) 10/18/2012 09/20/2016 documented as of this encounter (statuses as of 04/11/2023) Immunizations Name Administration Dates Next Due Pneumococcal [...] on file documented as of this encounter Miscellaneous Notes * Telephone Encounter - Edgar Garcia - 04/11/2023 9:06 AM EDT Orders in 04/11 [employer] supplies documented in this encounter Plan of Treatment Upcoming Encounters Date Type Specialty Care Team Description 04/11/2023 Office Visit Family Medicine Harman Lai MD [address] [place], [place] [id number] Health Maintenance Due Date Last Done Comments [...] Not on filedocumented as of this encounter Care Teams Blanket Cutter Hand Relationship Specialty Start Date End Date Rona Powell, [address] [place] [address] PCP - General Family Medicine 10/18/12 documented as of this encounter
--- OUTSIDE RECORDS SUMMARY | 2023-08-02 14:01 | External Medical Summary | Summary of Care ---
Author Name Unknown Organization [facility] Address [address] [place] [address] Phone [phone] Care Team Providers Care Boat Canvas Maker Installer Name Role Phone Rona Powell DO Primary Care Provider Encounter Details Date Type Department Care Team (Late st Contact Info) Description 04/08/2023 Telephone [facility] [address] [place] [address] Gwendolyn Davis DO [address] [facility] [place] [address] Allergies Active Allergy Reactions Criticality Noted Date Comments Pollen 04/13/2015 documented as of this encounter (statuses as of 07/08/2023) Medications Medication Sig Dispensed Refills Start Date [...] as of this encounter (statuses as of 07/08/2023) Active Problems Problem Noted Date Diagnosed Date Body mass index (BMI) of 45.0 to 49.9 in adult 0 11/09/2021 Overview: Per Obesity protocol - Per Obesity protocol - Per Obesity protocol - bmi= 46.93 09/20/16 KATTY (obstructive sleep apnea) 09/20/2020 Gastroesophageal reflux disease without esophagi tis 07/19/2019 Depression 10/07/2016 Bipolar depression 10/18/2012 Depression (emotion) 10/18/2012 documented as of this encounter (statuses as of 07/08/2023) Resolved Problems Problem Noted Date Diagnosed Date Resolved Date Body mass index (BMI) of 40. 0 to 44.9 in adult 10/13/2020 11/12/2021 Overview: Per Obesity protocol - Per Obesity protocol - bmi= 46.93 09/20/16 Prediabetes 09/08/2020 01/07/2021 Overview: Per Prediabetes protocol Body mass index (BMI) of 45. 0 to 49.9 in adult 07/16/2019 10/16/2020 Overview: Per Obesity protocol - bmi= 46.93 09/20/16 Body mass index (BMI) of 40. 0 to 44.9 in adult 04/04/2017 07/19/2019 Overview: Per Obesity protocol #1 - bmi= 46.93 09/20/16 Paronychia of thumb 12/07/2016 01/07/20 20 Tinea pedis of both feet 12/07/201612/2019 Adult BMI 45.0-49.9 kg/sq m 09/20/2016 04/07/2017 Overview: bmi= 46.93 09/20/16 Moderate right ankle sprain 09/20/2016 10/07/2016 Obesity, morbid (more than 1 00 lbs over ideal weight or BMI > 40) 01/30/2013 09/20/2016 Overview: bmi= 40.19 01/30/13 Pruritus 01/30/2013 01/07/2021 Dermatitis 01/30/2013 10/07/2016 Obesity, Class II, BMI 35-39 .9, isolated (see actual BMI) 10/18/2012 09/20/2016 documented as of this encounter (statuses as of 07/08/2023) Immunizations Name Administration Dates Next Due Pneumococcal Polysaccharide PPV23 (Pneumovax) Seasonal Influenza, PF, 6 M & above, IM , (FluLaval or Fluzone) 09/10/2020,07/19/2019 Seasonal Influenza, Quadrivalent, No Preserve, I M 09/04/2016 TDAP (age 10 and older)(Boostrix) 01/07/2020 documented as of this encounter Social History Tobacco Use Types Packs/Day Years Used Date Smoking Tobacco: Light Smoker Cigars Smokeless Tobacco: Former Quit: 12/31/2009 Comments:Occasional cigar Alcohol Use Standard Drinks/Week Comments No 0 (1 standard drink = 0.6 oz pure alcohol) Pt stopped d/t taking medication. PHQ-2 Answer Date Recorded PHQ Adult Total Score 0 08/07/2020 Hunger Vital Sign Answer Date Recorded Within the past 12 months, y ou worried that your food would run out before you got the money to buy more. Never true 08/07/19 21 Within the past 12 months, t he food you bought just didn't last and you didn't have money to get more. Never true 08/07/2020 Sex and Gender Information Value Date Recorded Sex Assigned at Not on file Gender Identity Not on file Sexual Orientation Straight 11/29/2018 12 :44 PM EDT Job Start Date Occupation Industry Not on file Not on file Not on file documented as of this encounter Miscellaneous Notes * Telephone Encounter - Laly Traore OSA - 04/08/2023 11:19 AM EDT Lmom to schedule return appt in 6 months documented in this encounter Plan of Treatment Upcoming Encounters Date Type Department Care Team (Late st Contact Info) Description 07/29/2023 2:40 PM EST Office [facility] [address] [facility] [address] Consuelo Green PA-C [address] [address] 10/10/2023 11:40 AM EDT [facility]medicine [facility] [address] [place] [phone] Gwendolyn Davis, [address] [place] [address] Health Maintenance Due Date Last Done Comments COVID-19 Vaccine (#1) 1990 HIV Screening 2005 Hepatitis C Screening 2008 Pneumococcal Vaccine: Pediatrics (0 to 5 Years) and At-Risk Patients (6 to 64 Years) (2 - PCV) 01/06/2021 01/07/2020 Depression Screening 08/07/2021 08/07/2020 Influenza Vaccine (FLU shot) (#1) 2023 09/10/2020, 07/19/2019, 07/19/2019, Additional history exists DTaP,Tdap,and Td Vaccines (2 - Td or Tdap) 01/06/2030 01/07/2020 Hepatitis B Completed 07/08/1999, 02/01, 12/03/1998 GARDASIL-HPV IMMUNIZATION SERIES Aged Out No longer eligible based on patient's age to complete this topic MENINGOCOCCAL (MENACTRA/MENVEO) Aged Out No longer eligible based on patient's age to complete this topic documented as of this encounter Medical Devices Not on filedocumented as of this encounter Care Teams Boat Canvas Maker Installer Relationship Specialty Start Date End Date Rona Powell DO [address] [place] [address] PCP - General Family Medicine 10/18/12 documented as of this encounter
[2023-08-03] MEDS: INSULIN ASPART PER UNIT CHARGE SC SCH ×6 (00:23→21:02)
[2023-08-03] MEDS: CEFEPIME 2,000 MG in SYRINGE 0 ML IV SCH ×3 (01:05→17:36)
--- NOTE | 2023-08-03 08:26 | Urology Progress Note ---
Date of Service August 03, 2023 Assessment & Plan (1) Renal colic: (2) Right ureteral stone: (3) UTI (urinary tract infection): Plan: 33 yo/M admitted for renal colic secondary to right mid ureteral stone and suspicion of UTI. Patient remains afebrile and hemodynamically stable Labs today showWBC 7.97, creatinine pending UA on arrival was suspicious for infection, urine culture pending Continue with broad spectrum antibiotics and narrow per sensitivity data when available No issues with pain overnight Denies stone passage Reviewed options for stone management including right ureteral stent placement today given obstructing right ureteral stone and suspected UTI He would like to proceed with right ureteral stent placement today Ureteral stents were discussed in detail Reviewed need for stone treatment at a later date after acute infection has been treated Will proceed to the OR for cystoscopy, retrograde pyelogram and right ureteral stent placement with Dr. Vieira Risks and benefits of procedure to be reviewed with patient by Dr. Vieira Continue with supportive care Admission and Anticipated Discharge Date Admission Date: August 02, 2023 Supervising Physician Co-Signing Physician Notes Discussed patient with CHRIS. Agree with plan. Given obstructing stone and positive urinalysis, recommended cystoscopy with right retrograde pyelogram right ureteral stent placement. Consent obtained. Patient marked Subjective Patient seen and examined at bedside this morning No acute issues overnight Denies stone passage Currently comfortable Denies nausea, vomiting, fever or chills Voiding without difficulty Currently NPO Review of Systems Constitutional: as per Subjective / HPI Gastrointestinal: as per Subjective / HPI Genitourinary: + as per Subjective / HPI Physical Exam Constitutional: well developed, well nourished and + morbidly obese; no acute distress and not ill appearing Respiratory: no respiratory distress and no labored breathing Cardiovascular: Rate/Rhythm: regular rate Gastrointestinal (Abdomen): Inspection/Auscultation: abdomen normal to inspection Musculoskeletal: Head/Neck/Chest: normocephalic Neurologic: moves all extremities and awake Psychiatric: Orientation: alert and oriented x 3 Results & Data Vital Signs (Past 12 Hours) Vital Signs Temp Pulse Pulse Resp BP BP Pulse Ox 08/03/23 07:27 36.8 C 71 18 150/79 H 98 08/03/23 02:50 68 24 996 H 08/02/23 22:00 65 22 96 08/02/23 21:40 08/02/23 21:40 36.7 C 67 20 172/80 H 98 08/02/23 21:01 57 L 17 136/85 98 O2 Del Method FiO2 08/03/23 07:27 Room Air 08/03/23 02:50 21 08/02/23 22:00 21 08/02/23 21:40 Room Air 08/02/23 21:40 Room Air 08/02/23 21:01 BiPAP PG Care Time/CCT Total # of Minutes Spent Total Time Spent with Patient: Total time spent is greater than 50% in coordination of care (as documented) at patient's floor/unit and/or counseling patient: Coding Level of Care Code 68059 SUB INP/OBS CARE 2/35MIN Diagnoses Renal colic N23 Right ureteral stone N20.1 UTI (urinary tract infection) N30.01 Hematuria presence: with hematuria Urinary tract infection type: acute cystitis (3) UTI (urinary tract infection) Hematuria presence: with hematuria Urinary tract infection type: acute cystitis Qualified Code(s): N30.01 - Acute cystitis with hematuria
[2023-08-03 08:41] LABS: Hematocrit (blood only) 41.1 % (42.0-52.0); Hemoglobin 12.9 g/dl (14.0-18.0); Mean Corpuscular Hemoglobin 28.5 pg (25.0-34.0); Mean Corpuscular Hgb Conc 31.4 g/dL (32.0-36.0); Mean Corpuscular Volume 90.7 fL (80.0-100.0); Mean Platelet Volume 11.3 fL (9.4-12.4); Platelet Count 228 K/uL (130-400); RDW Standard Deviation 46.4 fL (36.4-46.3); Red Blood Count 4.53 M/uL (4.70-6.10); White Blood Count 7.97 K/ul (4.8-10.8)
[2023-08-03 08:58] LABS: Estimated Average Glucose 157 mg/dl; Hemoglobin A1C 7.1 % (4.5-5.6)
[2023-08-03 09:00] LABS: BUN Creatinine Ratio 20.2 (10-20); Bilirubin Direct 0.1 mg/dl (0-0.2); Bilirubin,Total 0.6 mg/dl (0.2-1.0); Calcium 9.4 mg/dl (8.6-10.3); Chol HDL Ratio 5.2 (0-5); Creatinine Clr Calc Pharmacy 174.5 ml/min; Est GFR (African American) 133.3 ml/min; Magnesium 2.1 mg/dl (1.7-2.4); Phosphorus 3.9 mg/dl (2.5-4.9); Total Protein 6.8 gm/dl (6.0-8.3)
[2023-08-03 09:19] LABS: Ferritin 105.1 ng/ml (8-388)
[2023-08-03 09:21] LABS: Folate (Folic Acid),Ser orPlas 10.82 ng/ml (>5.38)
--- NOTE | 2023-08-03 09:24 | XRay Report ---
XR KUB/Abdomen 1 view CLINICAL HISTORY: right ureteral stone TECHNIQUE: 1 view of the abdomen was obtained. Comparison: Comparison is made to CT abdomen pelvis 08/02/2023 FINDINGS: Right ureteral stone is noted, similar in appearance to CT. The osseous structures are grossly unrema rkable. The bowel gas pattern is nonobstructive. A moderate amount of stool is noted within the large bowel. IMPRESSION: Stable appearance of right ureteral stone. ACT 112: Negative or not required by law. Electronically signed by: Martin Kirkland M.D. 08/03/2023 9:23 AM
[2023-08-03] MEDS: TAMSULOSIN HCL 0.4 MG CAP PO SCH (09:36)
[2023-08-03] MEDS: lamoTRIgine 25 MG TAB PO SCH (09:36)
[2023-08-03] MEDS ORDERED: PROPOFOL IV EMULSION 10 MG/ML 20 ML VIAL IV ONE (10:23)
[2023-08-03] MEDS ORDERED: LIDOCAINE 2% 2 ML VIAL/AMP(20MG/ML) INFIL ONE (10:23)
[2023-08-03] MEDS ORDERED: fentaNYL citrate PF 100 MCG/2 ML VIAL ONE (10:24)
[2023-08-03] MEDS ORDERED: MIDAZOLAM HCL 1 MG/ML 2ML VIAL ONE ×2 (10:24→11:15)
[2023-08-03] MEDS: LACTATED RINGER'S 1,000 ML IV SCH (10:41)
[2023-08-03] MEDS ORDERED: KETAMINE HCL 10MG/ML SYR ONE (11:04)
--- NOTE | 2023-08-03 11:04 | Anesthesiology Consultation ---
Date of Service August 03, 2023 Assessment & Plan ASA ASA3 Proposed Anesthesia Anesthesia Type: MAC History Surgery Operation Date: 08/03/23 07:00 Proposed Procedures p Cystoscopy, Retrograde Pyelogram, Right Ureteral Stent Placement - Des Vieira MD Height/Weight Height: 5 ft 5 in Weight: 154.3 kg Allergies Allergy/AdvReac Type Severity Reaction Status Date / Time No Known Drug Allergies Allergy Unknown Verified 10/16/20 13:12 POLLEN Allergy SNEEZE, Uncoded 10/16/20 13:12 WATERY EYES Medications Home Medications Medication Instructions Recorded Confirmed Last Taken Medical Marijauna 1 dose inhalation UD PRN Anxiety 09/12/19 08/02/23 12/28/19 07:00 albuterol sulfate 90 mcg/actuation 2 puff inhalation Q4 PRN Cough 10/08/20 08/02/23 Unknown aerosol inhaler lamotrigine 25 mg tablet (Lamictal) 50 mg PO QAM 08/02/23 08/02/23 Unknown sertraline 50 mg tablet (Zoloft) 50 mg PO QAM 08/02/23 08/02/23 Unknown ziprasidone HCl 40 mg capsule 40 mg PO HS 08/02/23 08/02/23 Unknown (Geodon) Active Medications Generic Name Dose Route Start Last Admin Trade Name Freq PRN Reason Stop Dose Admin Cefepime HCl 2,000 mg/ Syringe 20 mls @ 5 mls/min 08/02/23 10:00 08/03/23 09:36 IV 08/12/23 09:59 5 mls/min Q8H SUJEY Administration Protocol Lactated Ringer's 1,000 mls @ 15 mls/hr 08/03/23 10:15 08/03/23 10:41 Lr IV 09/02/23 10:14 15 mls/hr .Q24H SUJEY Administration Insulin Aspart 0 units 08/02/23 12:45 08/03/23 05:59 Insulin Aspart Per Unit Charge SC 09/01/23 12:44 Not Given Q6 SUJEY Lamotrigine 50 mg 08/02/23 10:00 08/03/23 09:36 Lamotrigine 25 Mg Tab PO 09/01/23 09:59 50 mg QAM SUJEY Administration Protocol Tamsulosin HCl 0.4 mg 08/03/23 09:00 01/31/24 09:36 Tamsulosin Hcl 0.4 Mg Cap PO 09/02/23 08:59 0.4 mg QAM SUJEY Administration NPO Date Last Intake of Fluids: 08/03/23 Time Last Intake of Fluids: 09:36 Date Last Intake of Solids: 08/02/23 Time Last Intake of Solids: 17:00 Past Medical History Medical History History of kidney stones Abdominal pain REASON FOR EGD Bipolar disorder Attention deficit disorder (ADD) Anxiety and depression Hyperlipidemia no medications Sleep apnea CPAP DEVICE Past Family History Family History Other No significant family history Past Surgical History Surgical History History of colonoscopy [place] teeth removed History of cholecystectomy Social History Smoking Status: Light tobacco smoker tobacco type: cigars Do You Dip or Chew Tobacco: No Hx Alcohol Use: No Hx Substance Use: No (ONLY USES [employer]) substance use type: marijuana Physical Exam Vital Signs Last Vital Signs Temp 36.9 C 08/03/23 10:34 Pulse 70 08/03/23 10:34 Resp 20 08/03/23 10:34 BP 157/84 H 08/03/23 10:34 Pulse Ox 98 08/03/23 10:34 O2 Del Method Room Air 08/03/23 10:34 FiO2 21 08/03/23 02:50 Testing Laboratory Results 08/03/23 07:41 08/03/23 07:41 Hemoglobin A1c 7.1 % (4.5-5.6) H 08/03/23 07:41 Urine Color Yellow 08/02/23 07:25 Urine Appearance Clear (Clear) 08/02/23 07:25 Urine pH 6.0 (4.5-7.5) 08/02/23 07:25 Ur Specific [place] 1.017 (1.000-1.030) 08/02/23 07:25 Urine Protein Negative (Negative) 08/02/23 07:25 Urine Glucose (UA) Negative (Negative) 08/02/23 07:25 Urine Ketones Negative (Negative) 08/02/23 07:25 Urine Nitrite Negative (Negative) 08/02/23 07:25 Ur Leukocyte Esterase 2+ (Negative) H 08/02/23 07:25 Urine WBC (Auto) 10-30 /hpf (0-5) H 08/02/23 07:25 Urine RBC (Auto) 10-30 /hpf (0-4) H 08/02/23 07:25 U Hyaline Cast (Auto) 1-5 /lpf (0-5) 08/02/23 07:25 U Epithel Cells (Auto) 0-5 /lpf (0-5) 08/02/23 07:25 Urine Bacteria (Auto) 4+ (Negative) H 08/02/23 07:25 08/03/23 08/03/23 08/02/23 10:39 05:55 23:52 POC Glucose 139 H 125 H 143 H
[2023-08-03] MEDS ORDERED: ONDANSETRON INJ 2 MG/ML 2 ML VIAL ONE (11:17)
--- NOTE | 2023-08-03 11:34 | Operative Report ---
PG Post Operative Report Pre & Post Diagnosis Operation Date: 08/03/23 07:00 Pre-Op Diagnosis: Right ureteral stent Post-Op Diagnosis: Right ureteral stent I identified the patient and participated in the time-out.: Yes Procedure Operation Date: 08/03/23 07:00 Actual Procedures p Cystoscopy, Retrograde Pyelogram with radiographic interpretation, Right Ureteral Stent Placement(Right) - Des Vieira MD Surgeon Des Vieira MD [place] Machine [employer] Helper None Estimated Blood Loss 0 Findings Consistent with Post-Op Diagnosis Bladder with some evidence of cystitis. Right retrograde showed moderate hydronephrosis. Stent in appropriate position. Specimens None Drains 6 Greek by 26 cm right ureteral stent Anesthesia Type General Indications 33-year-old male with a mid right ureteral calculus and urinalysis concerning for infection. Description of Procedure After informed consent was obtained, the patient was transported operative suite. General anesthesia was induced. The patient was placed in dorsolithotomy position prepped and draped in a sterile fashion. They received preoperative cefepime for antibiotic prophylaxis. An appropriate surgical timeout was performed. A 22 Greek rigid scope was inserted per urethra into the bladder. Peñaloza cystoscopy revealed no stones or lesions. There was some evidence of cystitis. I turned my attention the right ureteral orifice and intubated this with a 5 Greek open-ended catheter. A right retrograde pyelogram was shot which showed moderate hydronephrosis. A sensor wire was advanced into the kidney and con firmed fluoroscopically. A 6 Greek by 26 cm right ureteral stent was deployed with a good proximal coil in the renal pelvis and a good distal coil noted in the bladder, confirmed fluoroscopically and under direct visualization, respectively. The bladder was emptied and the scope was removed. This concluded the end of the case. All counts were correct at the end of the case. I was present, scrubbed, and actively participated for the entirety of the procedure. I attest to the content of the Intraoperative Record and any orders documented therein. Any exceptions are noted below.
[2023-08-03] MEDS ORDERED: DIATRIZOATE MEGLUMINE 30% 100ML VIAL INSTIL ONE (11:38)
--- NOTE | 2023-08-03 11:47 | Fluoroscopy Report ---
FL retrograde includes kub CLINICAL HISTORY: RT RETROGRADE STENT COMPARISON STUDY: None. FLUOROSCOPY TIME: 8 seconds. FLUOROSCOPY IMAGES: 1 Ka,r: Not obtained. FINDINGS: Retrograde opacification of the right renal collecting system with placement of a right ure teral stent. Only the proximal portion of the stent is identified but appears in good position. IMPRESSION: Fluoroscopic assistance as above. ACT 112: Negative or not required by law. Electronically signed by: Arslan Desouza M.D. 08/03/2023 11:46 AM
--- NOTE | 2023-08-03 12:19 | Hospitalist Progress Note ---
Date of Service August 03, 2023 Assessment & Plan (1) Right ureteral stone: (2) Kidney stone: (3) Bipolar disorder: (4) Anxiety and depression: (5) Schizoaffective disorder: (6) Morbid obesity with BMI of 50.0-59.9, adult: (7) Sleep apnea: (8) Anemia: (9) DM II (diabetes mellitus, type II), controlled: (10) Hyperlipidemia: Plan: Plan This is a 33-year-old male who has significant past medical history of morbid obesity, KATTY on CPAP, bipolar depression and GERD who presents to ED secondary to right lower back pain. Admitting CT scan revealed a 6 mm obstructing calculus in the mid right ureter r esulting in mild right hydroureteronephrosis. He was seen and evaluated by urology. He underwent cystoscopy, retrograde pyelogram with right ureteral stent placement, POD #0. Right ureteral calculus with resultant mild to moderate hydronephrosis Acute UTI POD #0 Appreciate urology recommendations Continue empiric IV cefepime Await urine culture No blood cultures drawn on admission, he did not meet sepsis criteria follow labs Abnormal CT Scan Elevated LFTS - CT abdomen reviewed: 1. There is a 6 mm obstructing calculus in the mid right ureter. This causes mild right hydroureteronephrosis. 2. Additional small nonobstructing renal calculi are seen bilaterally. 3. The liver is enlarged, steatotic, and shows early morphologic changes of cirrhosis. will trend LFTS recommend Referral to GI as outpatient and encourage weight loss Anemia hgb 12.9 and 41.1 anemia panel unremarkable trend T2DM a1c 7.1 insulin sliding scale while inpatient pt admits to not being compliant with metformin recommend resuming metformin 500mg bid at discharge chronic, stable KATTY cpap at HS Hypertriglyceridemia elevated triglycerides recommend low fat diet LDL, total chol acceptable Bipolar Depression Schizoaffective Continue zoloft, lamictal, geodon HS, Chronic, Stable Encourage continuation/ follow up with psych, therapist - pt reports remote hx of hallucination verbal and auditory, none currently Morbid obesity, BMI 56.6 recommend diet, lifestyle modifications pt may benefit referral to weight loss management DVT PPX: Encourage ambulation FULL CODE PCP: Rona Powell Pt was seen and examined in collaboration with Dr. Davies, please see addendum A total of 46 minutes was spent coordinating, documenting, and providing care for this patient excluding time spent in the performance of separately billed services. This included personally viewing all current laboratories and imaging studies, medication reconciliation, outpatient chart review, and discussion with specialists. Admission and Anticipated Discharge Date Admission Date: August 02, 2023 Supervising Physician Co-Signing Physician Notes Attending addendum: Patient was seen and examined in medical floor He is a status post right ureteric stent placement Has been feeling a lot better Denies any pain, nausea and or vomiting, any fever or chills On examination Sitting at the edge of the bed without any acute distress Blood pressure noted to be high at 178/797 Chest-clear to auscultate bilaterally Heart-S1-S2, regular Abdomen-distended, fatty, bowel sound present Extremities-trace edema bilaterally His labs, medications and imaging studies reviewed Left ureteric stone with mild hydronephrosis status post stent placement Remains medically stable Agree with assessment and plan as outlined above by Giana Davies Subjective Pt was seen and examined in room 376-2. F/U Ureteral stone. He is lying in bed. He is going for procedure today. He has bipap in place and offers no acute concerns or pain. He denies f/c/s, chest pain, sob, n/v/d. Review of Systems Review of Systems: All systems reviewed & are unremarkable except as noted in HPI & below Physical Exam Physical Exam: Gen: WD/WN, Obese, M, NAD, A&O x3 HEENT: Normocephalic, atraumatic, conjunctivae moist, sclerae anicteric, mucous membranes moist. Lung: Clear to Auscultation bilaterally, no wheezes/rales/rhonchi Heart: Regular rate, regular rhythm, no murmurs, rubs, or gallops Abdomen: obese abd, no CVA tenderness, Soft, NT, ND +BS x 4 Extremities: No edema Skin: Warm, no rash, negative turgor. Results & Data Results & Data Vital Signs (Past 12 Hours) Vital Signs Temp Pulse Pulse Pulse Resp BP Pulse Ox 08/03/23 12:00 86 24 135/80 96 08/03/23 11:50 85 21 114/61 97 08/03/23 11:42 37.2 C 94 H 31 H 94/55 L 95 01/31/24 10:34 36.9 C 70 20 157/84 H 98 08/03/23 08:00 08/03/23 07:27 36.8 C 71 18 150/79 H 98 08/03/23 02:50 68 24 996 H O2 Del Method O2 Flow Rate FiO2 08/03/23 12:00 Oxymask 4 08/03/23 11:50 Oxymask 4 08/03/23 11:42 Oxymask 6 08/03/23 10:34 Room Air 08/03/23 08:00 Room Air 08/03/23 07:27 Room Air 08/03/23 02:50 21 Laboratory Results Short CBC 08/03/23 Range/Units 07:41 WBC 7.97 (4.8-10.8) K/ul Hgb 12.9 L (14.0-18.0) g/dl Hct 41.1 L (42.0-52.0) % Plt Count 228 (130-400) K/uL BMP 08/03/23 07:41 Sodium 141 Potassium 4.0 Chloride 108 H Carbon Dioxide 27 BUN 17 Creatinine 0.84 Glucose 141 H Calcium 9.4 Liver Function 08/03/23 Range/Units 07:41 Total Bilirubin 0.6 (0.2-1.0) mg/dl Direct Bilirubin 0.1 (0-0.2) mg/dl AST 48 H (13-39) U/L ALT 76 H (7-52) U/L Alkaline Phosphatase 74 (34-104) U/L Albumin 4.0 (3.4-5.0) gm/dl I have independently reviewed and interpreted patient's admitting labs including CBC, CMP, A1C, Iron Panel, Lipid panel Diagnostic Findings Abdomen/Pelvis CT 08/02/23 06:35 CT SCAN OF THE ABDOMEN AND PELVIS WITHOUT IV CONTRAST CLINICAL HISTORY: Right flank pain. COMPARISON STUDY: Abdominal CT dated 10/08/2020 TECHNIQUE: CT scan of the abdomen and pelvis is performed from the lung bases to the proximal femora. Images are reviewed in the axial, sagittal, and coronal planes. IV contrast was not administered for this examination. A dose lowering technique was utilized adhering to the principles of ALARA. CT DOSE: 1479.25 mGy.cm FINDINGS: Lung bases: The heart is normal in size and without pericardial effusion. The lung bases are clear. There is a small hiatal hernia. Liver: The unenhanced liver is enlarged, measuring 24 cm in length. Attenuation is diffusely diminished indicating steatosis. Nodularity of the surface contour suggests early morphologic changes of cirrhosis. There is no intrahepatic biliary ductal dilatation. Gallbladder: Surgically absent noting clips in the gallbladder fossa. Spleen: Normal in size and attenuation. Pancreas: Unremarkable. Adrenal glands: Unremarkable. Kidneys: The unenhanced kidneys are normal in size. There is a 6 mm obstructing calculus in the mid right ureter seen on image #242. This is located at the level of L5 and causes mild right hydroureteronephrosis. There is associated perinephric stranding. An additional punctate nonobstructing calculus is seen in the right lower pole. A 2 mm nonobstructing calculus is noted on the left. There is no left-sided hydronephrosis. There is no evidence of contour deforming renal mass lesion. Abdominal vasculature: The abdominal aorta is normal in course and caliber. Bowel: There are scattered colonic diverticula without CT evidence of acute diverticulitis. No bowel obstruction is identified. The appendix is well- visualized and normal. Peritoneum: There is no intraperitoneal free air or abdominal ascites. There is a fat-containing umbilical hernia. Lymphadenopathy: None. Pelvic viscera: The bladder, prostate, and seminal vesicles are normal as visualized. Skeletal structures: No lytic or blastic lesions are seen. Posterior disc osteophyte complexes are noted at L4-L5 and L5-S1. There is mild sclerotic change noted in the sacroiliac joints. IMPRESSION: 1. There is a 6 mm obstructing calculus in the mid right ureter. This causes mild right hydroureteronephrosis. 2. Additional small nonobstructing renal calculi are seen bilaterally. 3. The liver is enlarged, steatotic, and shows early morphologic changes of cirrhosis. 4. Additional findings as above. ACT 112: Negative or not required by law. Electronically signed by: Gaurav Crisostomo M.D. 08/02/2023 8:05 AM KUB X-Ray 08/03/23 07:00 XR KUB/Abdomen 1 view CLINICAL HISTORY: right ureteral stone TECHNIQUE: 1 view of the abdomen was obtained. Comparison: Comparison is made to CT abdomen pelvis 08/02/2023 FINDINGS: Right ureteral stone is noted, similar in appearance to CT. The osseous structures are grossly unremarkable. The bowel gas pattern is nonobstructive. A moderate amount of stool is noted within the large bowel. IMPRESSION: Stable appearance of right ureteral stone. ACT 112: Negative or not required by law. Electronically signed by: Martin Kirkland M.D. 08/03/2023 9:23 AM Retrograde Pyelogram 08/03/23 11:00 FL retrograde includes kub CLINICAL HISTORY: RT RETROGRADE STENT COMPARISON STUDY: None. FLUOROSCOPY TIME: 8 seconds. FLUOROSCOPY IMAGES: 1 Ka,r: Not obtained. FINDINGS: Retrograde opacification of the right renal collecting system with placement of a right ureteral stent. Only the proximal portion of the stent is identified but appears in good position. IMPRESSION: Fluoroscopic assistance as above. ACT 112: Negative or not required by law. Electronically signed by: Arslan Desouza M.D. 08/03/2023 11:46 AM Medications Administered Current Inpatient Medications Acetaminophen (Acetaminophen 325 Mg Tab) 650 mg PO Q4H PRN PRN Reason: Mild Pain (Scale 1, 2, 3) Stop: 09/01/23 09:56 Albuterol (Albuterol Hfa 8 Gm Inhaler) 2 puffs INH Q4H PRN PRN Reason: Wheezing Stop: 09/01/23 09:56 Dextrose (Dextrose 50% 50 Ml Syringe) 25 - 50 ml IV UD PRN; Protocol PRN Reason: Hypoglycemia Protocol Stop: 09/01/23 09:56 Glucagon (Glucagon For Inj 1 Mg Vial) 1 mg SQ UD PRN; Protocol PRN Reason: Hypoglycemia Protocol Stop: 09/01/23 09:56 Glucose (Glucose 10 Tab/Tube) 4 - 8 tab PO UD PRN; Protocol PRN Reason: Hypoglycemia Treatment Stop: 09/01/23 09:56 Glucose (Glucose 40% Gel 15 Gm Tube) 15 - 30 gm PO UD PRN; Protocol PRN Reason: Hypoglycemia Protocol Stop: 09/01/23 09:56 Cefepime HCl 2,000 mg/ Syringe 20 mls @ 5 mls/min IV Q8H SUJEY; Protocol Stop: 08/12/23 09:59 Last Admin: 08/03/23 09:36 Dose: 5 mls/min Lactated Ringer's (Lr) 1,000 mls @ 15 mls/hr IV .Q24H SUJEY Stop: 09/02/23 10:14 Last Infusion: 08/03/23 11:09 Dose: Infused Insulin Aspart (Insulin Aspart Per Unit Charge) 0 units SC Q6 [facility] Stop: 09/01/23 12:44 Last Admin: 08/03/23 05:59 Dose: Not Given Lamotrigine (Lamotrigine 25 Mg Tab) 50 mg PO [facility]; Protocol Stop: 09/01/23 09:59 Last Admin: 08/03/23 09:36 Dose: 50 mg Miscellaneous (Carbohydrates For Hypoglycemia ) 15 - 30 gm PO UD PRN PRN Reason: Hypoglycemia Protocol Stop: 09/01/23 09:56 Morphine Sulfate (Morphine Sulfate 2 Mg/Ml Carp) 1 mg IV Q4H PRN PRN Reason: Pain Stop: 08/16/23 09:14 Polyethylene Glycol (Polyethylene (Miralax) 17 Gm Pack) 17 gm PO DAILY PRN PRN Reason: Constipation Stop: 09/01/23 09:14 Tamsulosin HCl (Tamsulosin Hcl 0.4 Mg Cap) 0.4 mg PO [facility] Stop: 09/02/23 08:59 Last Admin: 08/03/23 09:36 Dose: 0.4 mg
--- NOTE | 2023-08-03 12:36 | Anesthesiology Progress Note ---
Date of Service August 03, 2023 Anesthesia Post Procedure Vital Signs Vital Signs: Temp Pulse Pulse Pulse Pulse Pulse Resp 08/03/23 12:30 36.4 C L 78 16 08/03/23 12:10 36.8 C 83 18 08/03/23 12:00 86 24 08/03/23 11:50 85 21 08/03/23 11:42 37.2 C 94 H 31 H 08/03/23 10:34 36.9 C 70 20 08/03/23 08:00 08/03/23 07:27 36.8 C 71 18 08/03/23 02:50 68 24 08/02/23 22:00 65 22 08/02/23 21:40 08/02/23 21:40 36.7 C 67 20 08/02/23 21:01 57 L 17 08/02/23 17:35 36.7 C 67 19 08/02/23 13:35 76 19 BP BP Pulse Ox O2 Del Method O2 Flow Rate FiO2 08/03/23 12:30 145/78 H 95 Room Air 08/03/23 12:10 159/98 H 96 Room Air 08/03/23 12:00 135/80 96 Oxymask 4 08/03/23 11:50 114/61 97 Oxymask 4 08/03/23 11:42 94/55 L 95 Oxymask 6 08/03/23 10:34 157/84 H 98 Room Air 08/03/23 08:00 Room Air 08/03/23 07:27 150/79 H 98 Room Air 08/03/23 02:50 996 H 21 08/02/23 22:00 96 21 08/02/23 21:40 Room Air 08/02/23 21:40 172/80 H 98 Room Air 08/02/23 21:01 136/85 98 BiPAP 08/02/23 17:35 133/79 97 BiPAP 08/02/23 13:35 Room Air Pain Intensity Right Flank: Pain Intensity: 3 Transfer of Care Handoff Completed per policy Notes Mental Status: alert / awake / arousable and participated in evaluation Patient Amnestic to Procedure: Yes Nausea / Vomiting: adequately controlled Pain: adequately controlled Airway Patency, RR, SpO2: stable & adequate BP & HR: stable & adequate Hydration State: stable & adequate Anesthetic Complications: no major complications apparent
[2023-08-03] MEDS ORDERED: Nursing to Pharmacy Communication SCH (12:45)
[2023-08-04] MEDS: CEFEPIME 2,000 MG in SYRINGE 0 ML IV SCH ×2 (01:31→09:56)
[2023-08-04 07:33] LABS: Basophils # (auto) 0.04 K/uL (0.00-0.20); Basophils % (auto) 0.5 %; Eosinophils # (auto) 0.32 K/uL (0.00-0.50); Eosinophils % (auto) 3.9 %; Hematocrit (blood only) 40.5 % (42.0-52.0); Hemoglobin 13.1 g/dl (14.0-18.0); Immature Granulocytes # (auto) 0.04 K/uL (0.01-0.20); Immature Granulocytes % (auto) 0.5 %; Lymphocytes # (auto) 1.81 K/uL (1.20-3.40); Lymphocytes % (auto) 22.1 %; Mean Corpuscular Hemoglobin 28.6 pg (25.0-34.0); Mean Corpuscular Hgb Conc 32.3 g/dL (32.0-36.0); Mean Corpuscular Volume 88.4 fL (80.0-100.0); Mean Platelet Volume 10.8 fL (9.4-12.4); Monocytes # (auto) 0.57 K/uL (0.11-0.59); Neutrophils # (auto) 5.41 K/uL (1.40-6.50); Platelet Count 225 K/uL (130-400); RDW Standard Deviation 45.1 fL (36.4-46.3); Red Blood Count 4.58 M/uL (4.70-6.10); White Blood Count 8.19 K/ul (4.8-10.8)
[2023-08-04 08:17] LABS: Albumin Globulin Ratio 1.4 (0.9-2); BUN Creatinine Ratio 15.5 (10-20); Bilirubin,Total 0.6 mg/dl (0.2-1.0); Calcium 9.4 mg/dl (8.6-10.3); Creatinine Clr Calc Pharmacy 174.5 ml/min; Est GFR (African American) 133.3 ml/min; Globulin 2.9 gm/dl (2.5-4.0); Potassium 3.8 mmol/L (3.5-5.1); Total Protein 6.9 gm/dl (6.0-8.3)
[2023-08-04] MEDS: INSULIN ASPART PER UNIT CHARGE SC SCH (08:21)
[2023-08-04] MEDS: TAMSULOSIN HCL 0.4 MG CAP PO SCH (08:24)
[2023-08-04] MEDS: lamoTRIgine 25 MG TAB PO SCH (08:24)
--- NOTE | 2023-08-04 08:58 | Urology Progress Note ---
Date of Service August 04, 2023 Assessment & Plan (1) Right ureteral stone: Plan: - Pt POD#1 s/p cystoscopy, retrograde pyelogram and right ureteral stent placement - Doing well, progressing as expected - Afebrile, lab work reviewed - creatinine 0.84, WBC 8.19 - Urine culture showed Group B Beta strep - Tolerating right ureteral stent with minimal bother - Okay to d/c from perspective when medically stable - Recommend d/c with course of PO antibiotics to cover Group B strep in the setting of stone - Recommend Tamsulosin, prn Pyridium and prn analgesia for stent management - Expected clinical course reviewed, all questions answered - Will arrange outpatient follow-up with our service - will sign off, please contact our service with any additional questions or concerns Admission and Anticipated Discharge Date Admission Date: August 02, 2023 Subjective Patient seen and examined at bedside No acute issues overnight Denies flank or abdominal pain Voiding without difficulty Denies nausea, vomiting, fever or chills Review of Systems Constitutional: as per Subjective / HPI Gastrointestinal: as per Subjective / HPI Genitourinary: + as per Subjective / HPI Physical Exam Constitutional: well developed, well nourished and + morbidly obese; no acute distress and not ill appearing Respiratory: no respiratory distress and no labored breathing Gastrointestinal (Abdomen): Inspection/Auscultation: abdomen normal to inspec tion Musculoskeletal: Head/Neck/Chest: normocephalic Neurologic: moves all extremities and awake Psychiatric: Orientation: alert and oriented x 3 Results & Data Vital Signs (Past 12 Hours) Vital Signs Temp Pulse Pulse Resp BP Pulse Ox O2 Del Method 08/04/23 07:48 36.5 C 60 20 138/84 98 CPAP 08/04/23 07:29 CPAP 08/04/23 04:00 36.6 C 72 16 156/92 H 96 Room Air 08/04/23 03:51 72 22 95 08/03/23 22:48 36.7 C 72 16 145/80 H 98 Room Air 08/03/23 22:22 FiO2 08/04/23 07:48 08/04/23 07:29 08/04/23 04:00 08/04/23 03:51 08/03/23 22:48 08/03/23 22:22 21 PG Care Time/CCT Total # of Minutes Spent Total Time Spent with Patient: Total time spent is greater than 50% in coordination of care (as documented) at patient's floor/unit and/or counseling patient: Coding Level of Care Code 45157 SUB INP/OBS CARE Diagnoses Right ureteral stone N20.1
[2023-08-04] MEDS ORDERED: SERTRALINE HCL 50 MG TABLET PO SCH (09:00)
[2023-08-04] MEDS: LACTATED RINGER'S 1,000 ML IV SCH (10:35)
--- NOTE | 2023-08-04 11:23 | Hospitalist Progress Note ---
Date of Service August 04, 2023 Assessment & Plan (1) Right ureteral stone: (2) Kidney stone: (3) Bipolar disorder: (4) Anxiety and depression: (5) Schizoaffective disorder: (6) Morbid obesity with BMI of 50.0-59.9, adult: (7) Sleep apnea: (8) Anemia: (9) DM II (diabetes mellitus, type II), controlled: (10) Hyperlipidemia: Plan: Plan This is a 33-year-old male who has significant past medical history of morbid obesity, KATTY on CPAP, bipolar depression and GERD who presents to ED secondary to right lower back pain. Admitting CT scan revealed a 6 mm obstructing calculus in the mid right ureter r esulting in mild right hydroureteronephrosis. He was seen and evaluated by urology. He underwent cystoscopy, retrograde pyelogram with right ureteral stent placement, POD #0. Right ureteral calculus with resultant mild to moderate hydronephrosis Acute UTI POD #1 Appreciate urology recommendations Continue empiric IV cefepime Await urine culture-growing group B strep to and will continue antibiotic for 5 more days on discharge as per instruction from the urologist Remains afebrile and does not have any more symptoms CBC and PRP are unremarkable He will be discharged home on oral Keflex for the next 5 days Will have follow-up with PCP in 7 days neurologist as to determine Abnormal CT Scan Elevated LFTS-likely secondary to fatty liver - CT abdomen reviewed: 1. There is a 6 mm obstructing calculus in the mid right ureter. This causes mild right hydroureteronephrosis. 2. Additional small nonobstructing renal calculi are seen bilaterally. 3. The liver is enlarged, steatotic, and shows early morphologic changes of cirrhosis. will trend LFTS recommend Referral to GI as outpatient and encourage weight loss LFTs are improving Will advise the PCP to follow-up on liver function test and weight reduction Anemia hgb 12.9 and 41.1 anemia panel unremarkable Hemoglobin remains normal at 13 point T2DM a1c 7.1 insulin sliding scale while inpatient pt admits to not being compliant with metformin recommend resuming metformin 500mg bid at discharge chronic, stable KATTY cpap at HS Continue to use CPAP at night Hypertriglyceridemia elevated triglycerides recommend low fat diet LDL, total chol acceptable Bipolar Depression Schizoaffective Continue zoloft, lamictal, geodon HS, Chronic, Stable Encourage continuation/ follow up with psych, therapist - pt reports remote hx of hallucination verbal and auditory, none currently Morbid obesity, BMI 56.6 recommend diet, lifestyle modifications pt may benefit referral to weight loss management DVT PPX: Encourage ambulation FULL CODE PCP: Rona Powell . Admission and Anticipated Discharge Date Admission Date: August 02, 2023 Subjective 08/04/2023 The patient was seen and examined in medical floor He has been stable and does not have any abdominal pain, nausea and or vomiting His hematuria has improved a lot No fever and or chills and his white count is not elevated He will be discharged home this afternoon Review of Systems Review of Systems: All systems reviewed and are unremarkable except as noted below Physical Exam Physical Exam: Lying in bed without any acute distress Constitutional: well developed, well nourished and + obese; not ill appearing Eyes: PERRL, conjunctivae normal, anicteric sclerae ENMT: external ear and nose normal, oropharynx normal Neck: trachea midline, no thyromegaly Respiratory: no respiratory distress Auscultation: lungs clear to auscultation bilaterally and + diminished lung sounds Cardiovascular: Rate/Rhythm: regular rate and regular rhythm; not tachycardic Heart Sounds: normal S1 and normal S2; no murmur Extremities: + edema (Trace edema bilaterally) Gastrointestinal (Abdomen): Inspection/Auscultation: + abdomen distended and normal bowel sounds Percussion/Palpation: abdomen soft; abdomen nontender Musculoskeletal: No acute arthritis involving any of the joint Neurologic: normal touch/pain/proprioception and moves all extremities; no focal motor deficits Psychiatric: A+Ox3, euthymic affect Lymphatic: no cervical or axillary lymphadenopathy Results & Data Results & Data Vital Signs (Past 12 Hours) Vital Signs Temp Pulse Pulse Resp BP Pulse Ox O2 Del Method 08/04/23 11:11 36.8 C 82 18 160/72 H 99 CPAP 08/04/23 07:48 36.5 C 60 20 138/84 98 CPAP 08/04/23 07:29 CPAP 08/04/23 04:00 36.6 C 72 16 156/92 H 96 Room Air 08/04/23 03:51 72 22 95 Laboratory Results Short CBC 08/04/23 Range/Units 07:12 WBC 8.19 (4.8-10.8) K/ul Hgb 13.1 L (14.0-18.0) g/dl Hct 40.5 L (42.0-52.0) % Plt Count 225 (130-400) K/uL BMP 08/04/23 07:12 Sodium 140 Potassium 3.8 Chloride 107 Carbon Dioxide 27 BUN 13 Creatinine 0.84 Glucose 138 H Calcium 9.4 Liver Function 08/04/23 Range/Units 07:12 Total Bilirubin 0.6 (0.2-1.0) mg/dl AST 42 H (13-39) U/L ALT 73 H (7-52) U/L Alkaline Phosphatase 73 (34-104) U/L Albumin 4.0 (3.4-5.0) gm/dl Medications Administered Current Inpatient Medications Acetaminophen (Acetaminophen 325 Mg Tab) 650 mg PO Q4H PRN PRN Reason: Mild Pain (Scale 1, 2, 3) Stop: 09/01/23 09:56 Albuterol (Albuterol Hfa 8 Gm Inhaler) 2 puffs INH Q4H PRN PRN Reason: Wheezing Stop: 09/01/23 09:56 Cephalexin HCl (Cephalexin 500 Mg Cap) 500 mg PO QID SUJEY; Protocol Stop: 08/09/23 12:59 Dextrose (Dextrose 50% 50 Ml Syringe) 25 - 50 ml IV UD PRN; Protocol PRN Reason: Hypoglycemia Protocol Stop: 09/01/23 09:56 Glucagon (Glucagon For Inj 1 Mg Vial) 1 mg SQ UD PRN; Protocol PRN Reason: Hypoglycemia Protocol Stop: 09/01/23 09:56 Glucose (Glucose 10 Tab/Tube) 4 - 8 tab PO UD PRN; Protocol PRN Reason: Hypoglycemia Treatment Stop: 09/01/23 09:56 Glucose (Glucose 40% Gel 15 Gm Tube) 15 - 30 gm PO UD PRN; Protocol PRN Reason: Hypoglycemia Protocol Stop: 09/01/23 09:56 Lactated Ringer's (Lr) 1,000 mls @ 15 mls/hr IV .Q24H SUJEY Stop: 09/02/23 10:14 Last Admin: 08/04/23 10:35 Dose: 15 mls/hr Insulin Aspart (Insulin Aspart Per Unit Charge) 0 units SC ACHS SUJEY Stop: 09/01/23 12:44 Last Admin: 08/04/23 08:21 Dose: Not Given Lamotrigine (Lamotrigine 25 Mg Tab) 50 mg PO QAM SUJEY; Protocol Stop: 09/01/23 09:59 Last Admin: 08/04/23 08:24 Dose: 50 mg Miscellaneous (Carbohydrates For Hypoglycemia ) 15 - 30 gm PO UD PRN PRN Reason: Hypoglycemia Protocol Stop: 09/01/23 09:56 Morphine Sulfate (Morphine Sulfate 2 Mg/Ml Carp) 1 mg IV Q4H PRN PRN Reason: Pain Stop: 08/16/23 09:14 Polyethylene Glycol (Polyethylene (Miralax) 17 Gm Pack) 17 gm PO DAILY PRN PRN Reason: Constipation Stop: 09/01/23 09:14 Sertraline HCl (Sertraline Hcl 50 Mg Tablet) [facility] [place] Stop: 09/03/23 08:59 Last Admin: 08/04/23 08:24 Dose: 50 mg Tamsulosin HCl (Tamsulosin Hcl 0.4 Mg Cap) 0.4 mg [facility] [place] Stop: 09/02/23 08:59 Last Admin: 08/04/23 08:24 Dose: 0.4 mg Ziprasidone (Ziprasidone Hcl 20 Mg Cap) 40 mg PO [facility] Stop: 09/02/23 20:59 Last Admin: 08/03/23 20:11 Dose: 40 mg
[2023-08-04] MEDS ORDERED: cephALEXin 500 MG CAP PO SCH (13:00)
--- NOTE | 2023-08-05 13:00 | Discharge Summary ---
Date of Service August 04, 2023 Admission HPI Per Admitting Provider This is a 33 yo M with PMHx of bipolar type 1, schizoaffective disorder on geodon, with DM II secondary to antipsychotic medication, anxiety, KATTY on cpap, and morbid obesity with BMI of 56.6. He has hx of nephrolithiasis a few years ago. Pt notes that his pain started around 1:30 am and was lying down to go to bed, but at 4 am was awoken by sharp pain in his right lower back/abdomen. He took some pain medication, advil x 2, overnight but didn't seem to help. He denies dysuria, hematuria, fever, chills or sweats. Pain felt similar to previous kidney stone so called EMS and presented here. He is taking geodon, sertraline. He is supposed to be taking metformin but isn't taking it. He reports not being good with taking mediation in general. Pt notes his psych history makes him less likely to follow through with medications and check ups. He states his mood overall is ok currently, pt is taking lamictal, geodon and sertraline. This morning missed meds due to the above. Admission Exam Per Admitting Provider Review of Systems: Constitutional: No fever, sweats or chills Eyes: No diplopia, no worsening or blurred vision ENT: normal hearing, no trouble swallowing Respiratory: No cough, sputum, dyspnea at rest or on exertion Cardiovascular: No chest pain, tightness or palpitations Abdomen: No pain, nausea, vomiting, diarrhea or constipation : As per HPI Musculoskeletal: No joint pain, calf pain, swelling Neurologic: No weakness, numbness/tingling, or balance problems Psychiatric: No anxiety or depression Skin: No rash or itch Principal Diagnosis Right ureteral calculus status post stent placement, acute UTI,, KATTY, type 2 diabetes Discharge Exam Lying in bed without any acute distress Constitutional well developed, well nourished and + obese; not ill appearing Eyes PERRL, conjunctivae normal, anicteric sclerae ENMT external ear and nose normal, oropharynx normal Neck trachea midline, no thyromegaly Respiratory no respiratory distress Auscultation: lungs clear to auscultation bilaterally and + diminished lung vidhi nds Cardiovascular Rate/Rhythm: regular rate and regular rhythm; not tachycardic Heart Sounds: normal S1 and normal S2; no murmur Extremities: + edema (Trace edema bilaterally) Gastrointestinal (Abdomen) Inspection/Auscultation: + abdomen distended and normal bowel sounds Percussion/Palpation: abdomen soft; abdomen nontender Neurologic normal touch/pain/proprioception and moves all extremities; no focal motor deficits Psychiatric A+Ox3, euthymic affect Lymphatic no cervical or axillary lymphadenopathy Discharge Data Allergies Allergy/AdvReac Type Severity Reaction Status Date / Time No Known Drug Allergies Allergy Unknown Verified 10/16/20 13:12 POLLEN Allergy SNEEZE, Uncoded 10/16/20 13:12 WATERY EYES Consultations 08/02/23 09:14 ED Decision to Admit Stat 08/02/23 09:57 Consult Urology Routine Procedures Performed Operation Date: 08/03/23 07:00 Actual Procedures p Cystoscopy, Retrograde Pyelogram, Right Ureteral Stent Placement(Right) - Des Vieira MD Ordered Studies 08/02/23 06:35 CT stones [CT abd pelvis wo con] Stat 08/03/23 11:00 FL retrograde includes kub Routine Hospital Course (1) Right ureteral stone: (2) Kidney stone: (3) Bipolar disorder: (4) Anxiety and depression: (5) Schizoaffective disorder: (6) Morbid obesity with BMI of 50.0-59.9, adult: (7) Sleep apnea: (8) Anemia: (9) DM II (diabetes mellitus, type II), controlled: (10) Hyperlipidemia: Plan This is a 33-year-old male who has significant past medical history of morbid obesity, KATTY on CPAP, bipolar depression and GERD who presents to ED secondary to right lower back pain. Admitting CT scan revealed a 6 mm obstructing calculus in the mid right ureter resulting in mild right hydroureteronephrosis. He was seen and evaluated by urology. He underwent cystoscopy, retrograde pyelogram with right ureteral stent placement, POD #0. Right ureteral calculus with resultant mild to moderate hydronephrosis Acute UTI POD #1 Appreciate urology recommendations Continue empiric IV cefepime Await urine culture-growing group B strep to and will continue antibiotic for 5 more days on discharge as per instruction from the urologist Remains afebrile and does not have any more symptoms CBC and PRP are unremarkable He will be discharged home on oral Keflex for the next 5 days Will have follow-up with PCP in 7 days neurologist as to determine Abnormal CT Scan Elevated LFTS-likely secondary to fatty liver - CT abdomen reviewed: 1. There is a 6 mm obstructing calculus in the mid right ureter. This causes mild right hydroureteronephrosis. 2. Additional small nonobstructing renal calculi are seen bilaterally. 3. The liver is enlarged, steatotic, and shows early morphologic changes of cirrhosis. will trend LFTS recommend Referral to GI as outpatient and encourage weight loss LFTs are improving Will advise the PCP to follow-up on liver function test and weight reduction Anemia hgb 12.9 and 41.1 anemia panel unremarkable Hemoglobin remains normal at 13 point T2DM a1c 7.1 insulin sliding scale while inpatient pt admits to not being compliant with metformin recommend resuming metformin 500mg bid at discharge chronic, stable KATTY cpap at HS Continue to use CPAP at night Hypertriglyceridemia elevated triglycerides recommend low fat diet LDL, total chol acceptable Bipolar Depression Schizoaffective Continue zoloft, lamictal, geodon HS, Chronic, Stable Encourage continuation/ follow up with psych, therapist - pt reports remote hx of hallucination verbal and auditory, none currently Morbid obesity, BMI 56.6 recommend diet, lifestyle modifications pt may benefit referral to weight loss management DVT PPX: Encourage ambulation FULL CODE PCP: Rona Powell . Total Time Total Time Spent Total Time Spent (In Minutes): 35 minutes Discharge Plan Discharge Items Patient Disposition: Home - Self-Care Reason For Visit: STONE Discharge Diagnosis: Right ureteral calculus status post stent placement, acute UTI,, KATTY, type 2 diabetes Condition on Discharge: Good Activity: Resume your previous activity Non-emergency contact: Primary Care Provider Call non-emergency contact if: you have any medication questions and your symptoms worsen Follow-up/Referrals: Vero Saldivar CRNP [Nurse Practitioner] - 08/12/23 11:00 am Rona Powell DO [Primary Care Provider] - (Date & Time 08/10/2023 10:00 AM Provider Harman Lai MD [facility] ) Diet: Carb Consistent or DM2 Addtl Attending Provider Instructions: Please take precautions to avoid fall Finish the course of antibiotic Try to drink more fluid Keep appointments with the healthcare providers Addtl Production Grader Provider Instructions: Please take all medications as prescribed and keep all follow-ups as scheduled. Please call our office at [phone] with any questions, concerns or need to reschedule appointments for any reason. We are happy to assist you. While you have a ureteral stent in place: Some discomfort is normal. Certain movements may trigger pain or a feeling that you need to urinate. You may also feel mild soreness or pressure before or during urination. These symptoms should go away a few days after the stent is removed. Your urine may be slightly pink or red. This is due to bleeding caused by minor irritation from the stent. This may happen on and off while you have the stent, it is not harmful and is to be expected. Medication to help minimize discomfort or bladder spasms, or to prevent infection may be prescribed. Take this as directed. Drink plenty of fluids to help flush out your urinary tract. If you go home with a catheter, wash with soapy water and a fresh washcloth twice daily. We recommend mild bar soap such as Dial or Dove. When to call [facility] at [phone]: Your urine contains heavy blood clots You are constantly leaking urine Fever of 101F or higher, chills, nausea, or vomiting Your pain is not relieved with medication The end of the stent comes out of your urethra Pending Studies at Discharge: No Stand-Alone Forms: [facility] [employer], Work/School Release, Smoking Cessation Medications and DC Order Prescriptions: New tamsulosin 0.4 mg Capsule 0.4 mg PO QAM Qty: 30 0RF cephalexin 500 mg Capsule 500 mg PO QID Qty: 20 0RF phenazopyridine [Pyridium] 200 mg tablet 200 mg PO Q8H PRN (Reason: pain) Qty: 6 0RF Continued Medical Marijauna 1 dose inhalation UD PRN (Reason: Anxiety) Rx Instructions: VAP OR FLOWER albuterol sulfate 90 mcg/actuation HFA aerosol inhaler 2 puff INHALATION Q4 PRN (Reason: Cough) lamotrigine [Lamictal] 25 mg tablet 50 mg PO QAM Rx Instructions: as directed ziprasidone HCl [Geodon] 40 mg capsule 40 mg PO HS Rx Instructions: as directed sertraline [Zoloft] 50 mg tablet 50 mg PO QAM Rx Instructions: as directed Discharge Orders: Discharge Order (Routine); Ordered 08/04/23 Ordered By: Blanka Rhodes/Other Patient Handouts: Managing Type 2 Diabetes Admission Data Admit Date/Time: 08/02/23 09:14 Attending Provider: Blanka Davies Admit Provider: Rebekah Beltre Primary Care Provider: Rona Powell Other Providers: Rebekah Beltre; Darren Freire Other Interventions: Discharge Summary Assessment (RN) Last Done: 08/04/23 12:21
== END 2023-08-04 12:40 | disposition home or self-care (01) | DRG 660 ==
LOC: ED 05:48 → EDINP 09:14 → SUATTDRO 09:14 → 3N 09:57